=== PATIENT | female | born 1965 | race Caucasian/White ===

== ENCOUNTER 2020-11-02 09:04 | Outpatient (REF) | payer OTHER, SELFPAY ==
[2020-11-02 11:34] LABS: Glucose Urine UA NEG (NEG); Leukocyte Esterase Urine NEG (NEG); Nitrite Urine NEG (NEG); Urine Blood TRACE (NEG); Urine Ketones NEG (NEG); Urine Protein NEG (NEG-TRACE)
[2020-11-02 11:36] LABS: Appearance Urine CLEAR; Color Urine YELLOW
[2020-11-02 11:51] LABS: Hematocrit 36.8 % (37-47); Hemoglobin 12.3 g/dl (12.0-16.0); Mean Corpuscular HGB Conc 33.4 g/dl (31.0-35.0); Mean Corpuscular Hemoglobin 30.8 pg (27.0-33.0); Mean Corpuscular Volume 92.2 fL (80-98); Platelet Count 323 X10*3/uL (160-400); Red Blood Count 3.99 X10*6/uL (4.20-5.50); Red Cell Distribution Width 13.6 % (11.0-16.0); White Blood Count 3.8 X10*3/uL (4.8-10.8)
[2020-11-02 11:52] LABS: Mucus Urine TRACE /LPF; Squamous Epithelial Cell Urine 1+ /LPF; WBC Urine 0 /HPF (0-4)
[2020-11-02 12:05] LABS: Alanine Aminotransferase 26 U/L (0-31); Albumin Level 4.4 g/dL (3.5-5.0); Alkaline Phosphatase 71 U/L (39-117); Anion Gap 13 (12-20); Aspartate Amino Transferase 22 U/L (5-31); Bilirubin Total 0.7 mg/dL (0.0-1.0); Blood Urea Nitrogen 12 mg/dL (9-16); Calcium 9.7 mg/dL (8.4-10.2); Carbon Dioxide 24 mmol/L (22-29); Chloride 108 mmol/L (96-108); Cholesterol 251 mg/dL; Estimated Glomerular Filt Rate > 60; Glucose Fasting 96 mg/dL (60-99); HDL Cholesterol 50 mg/dL; LDL Cholesterol Calculated 164 mg/dl; Potassium 4.3 mmol/L (3.3-5.1); Sodium 141 mmol/L (135-145); Total Protein 7.2 g/dL (6.5-8.0); Triglycerides 187 mg/dL
[2020-11-02 12:27] LABS: TSH reflex Free T4 1.64 uIU/mL (0.32-4.0)
[2020-11-03 17:51] LABS: Thyroid Peroxidase Antibodies 2 IU/mL (<9)
== END 2020-11-02 09:05 | disposition home or self-care (01) ==
LOC: HO.HMGCLDS 09:04
PROVIDERS: PCP Internal Medicine; Visit Provider Internal Medicine
DX: Z00.00 Encounter for general adult medical examination without abnormal findings (principal); N30.10 Interstitial cystitis (chronic) without hematuria; E06.3 Autoimmune thyroiditis
CPT/HCPCS: 36415; 80053; 80061; 81001; 84443; 85027; 86376

== ENCOUNTER 2020-12-22 06:25 | Outpatient (REF) | payer OTHER, SELFPAY ==
[2020-12-22 10:07] LABS: Influenza A PCR NEGATIVE (Negative); Influenza B PCR NEGATIVE (Negative); Resp Syncy Virus RNA Qual PCR NEGATIVE (Negative); SARS COV2 PCR INHOUSE NEGATIVE (Negative)
== END 2020-12-22 06:26 | disposition home or self-care (01) ==
LOC: HO.LAB 06:25
PROVIDERS: PCP Internal Medicine; Visit Provider Internal Medicine
DX: Z20.822 Contact with and (suspected) exposure to COVID-19 (principal)
CPT/HCPCS: 0241U; 36415; C9803

== ENCOUNTER → 2021-01-09 08:32 | Outpatient (BNVA) | payer OTHER, SELFPAY | PROVIDERS: PCP Internal Medicine; Visit Provider Internal Medicine ==

== ENCOUNTER 2021-01-12 16:02 | Outpatient (REF) | payer OTHER, SELFPAY ==
--- NOTE | ~2021-01-12 | MR_ITS ---
EXAMINATION: MR CERVICAL SPINE WITHOUT CONTRAST CLINICAL INFORMATION: Neck pain. Bilateral upper and lower extremity pain and weakness. Upper extremity numbness. COMPARISON: No relevant prior imaging. TECHNIQUE: MRI of the cervical spine was obtained using routine sequences without contrast. FINDINGS: Alignment is normal. Vertebral body heights are preserved. No acute bone marrow signal changes. There is loss of intervertebral disc height and T2 signal intensity at C4-C5, C5-C6, and C6-C7 related to disc degeneration. Disc desiccation is demonstrated at multiple additional levels. There is no cord compression or abnormal intramedullary signal changes. The cervicomedullary junction is normal. Limited visualization of the posterior fossa reveals no abnormal finding. The occipital condyles and lateral C1 masses are intact. The atlantodental joint is normal. C1-C2 articular facets are unremarkable. At C2-C3 the annular contour is normal. No canal or neuroforaminal compromise. At C3-C4 the annular contour is normal. Asymmetric uncovertebral joint spurring and facet degenerative change causes mild left neuroforaminal encroachment. At C4-C5 there is a slightly bulging disc. Mild canal stenosis. Uncovertebral joint spurring and facet degenerative change causes mild bilateral neuroforaminal encroachment, slightly greater on the left. At C5-C6 there is a slightly bulging disc. Mild canal stenosis. Uncovertebral joint spurring and facet degenerative change causes mild bilateral neuroforaminal encroachment. At C6-C7 there is a slightly bulging disc. Mild canal stenosis. Asymmetric uncovertebral joint spurring and facet degenerative change causes mild left neuroforaminal encroachment. At C7-T1 annular contour is normal. No canal or neuroforaminal compromise. Visualized soft tissues of the neck are normal. MR/MR cervical spine wo con IMPRESSION: There is multilevel degenerative spondylosis of the cervical spine with mild canal stenosis at levels of C4-C5, C5-C6, and C6-C7. No overt cord compression and no abnormal intramedullary signal changes. There is mild neuroforaminal encroachment at multiple levels related to uncovertebral joint spurring and facet degenerative change as described above.
--- NOTE | ~2021-01-12 | MR_ITS ---
EXAMINATION: MR LUMBAR SPINE WITHOUT CONTRAST CLINICAL INFORMATION: Low back pain. Bilateral lower extremity pain and weakness. COMPARISON: No relevant prior imaging. TECHNIQUE: MRI of the lumbar spine was obtained using routine sequences without contrast. FINDINGS: Alignment is normal. Vertebral body heights are preserved. There is slight loss of intervertebral disc height and T2 signal intensity at L3-L4. Disc desiccation is demonstrated at multiple additional levels. The tip of the conus medullaris is located at L1. No mass effect on the conus. Visualized distal cord signal intensity is normal. At L1-L2 the annular contour is normal. No canal or neuroforaminal compromise. At L2-L3 the annular contour is normal. No canal or neuroforaminal compromise. At L3-L4 there is a slightly bulging disc. Bilateral facet degenerative change. Mild canal stenosis and no mass effect on the traversing or foraminal nerve roots. At L4-L5 there is a slightly bulging disc. Bilateral facet degenerative change. No canal stenosis. No mass effect on the traversing or foraminal nerve roots. At L5-S1 there is a central annular fissure associated with a bulging disc. No canal stenosis. No mass effect on the traversing or foraminal nerve roots. Limited visualization of the retroperitoneal anatomy reveals no abnormal finding. Psoas and paraspinal muscle groups are symmetric. MR/MR lumbar spine wo con IMPRESSION: There is disc degeneration at multiple levels within the lumbar spine. Mild canal stenosis at L3-L4. Otherwise no canal compromise. No mass effect on the traversing or foraminal nerve roots.
== END 2021-01-12 16:03 | disposition home or self-care (01) ==
LOC: HO.MRI 16:02
PROVIDERS: PCP Internal Medicine; Visit Provider Internal Medicine
DX: M54.5 Low back pain (principal); M54.2 Cervicalgia
CPT/HCPCS: 72141; 72148

== ENCOUNTER 2021-01-18 07:03 | Outpatient (REF) | payer OTHER, SELFPAY | END 2021-01-18 07:04 | disposition home or self-care (01) | LOC: HO.LAB 07:03 | PROVIDERS: Visit Provider Internal Medicine | DX: Z20.822 Contact with and (suspected) exposure to COVID-19 (principal) | CPT/HCPCS: C9803; U0003; U0005 ==

== ENCOUNTER → 2021-02-10 10:47 | Outpatient (BNVA) | payer OTHER, SELFPAY | PROVIDERS: PCP Internal Medicine; Visit Provider Internal Medicine ==

== ENCOUNTER → 2021-03-17 09:57 | Outpatient (BNVA) | payer OTHER, SELFPAY | PROVIDERS: PCP Internal Medicine; Visit Provider Internal Medicine ==

== ENCOUNTER 2021-10-24 13:28 | Outpatient (REF) | payer OTHER, SELFPAY ==
[2021-10-24 13:43] LABS: MANUAL DIFF FLAG NO
[2021-10-24 14:23] LABS: Basophils Percent Auto 0.3 % (0-2); Eosinophils Percent Auto 0.2 % (0-4); Hematocrit 36.5 % (37.0-47.0); Hemoglobin 12.1 g/dl (12.0-16.0); Imm Gran Abs Auto 0.08 X10*3/uL (0.00-0.03); Imm Gran Pct Auto 0.9 % (0.0-0.4); Lymphocytes Absolute Auto 1.7 X10*3/uL (1.2-4.9); Lymphocytes Percent Auto 18.7 % (20-40); Mean Corpuscular HGB Conc 33.2 g/dl (31.0-35.0); Mean Corpuscular Hemoglobin 29.6 pg (27.0-33.0); Mean Corpuscular Volume 89.2 fL (80.0-98.0); Mean Platelet Volume 9.9 fL (9.4-12.3); Monocytes Absolute Auto 0.4 X10*3/uL (0.1-1.2); Monocytes Percent Auto 4.4 % (2-11); Neutrophils Absolute Auto 6.8 x10*3/uL (2.0-8.3); Neutrophils Percent Auto 75.5 % (45-73); Platelet Count 346 X10*3/uL (160-400); Red Blood Count 4.09 X10*6/uL (4.20-5.50); Red Cell Distribution Width 13.9 % (11.0-16.0); White Blood Count 9.1 X10*3/uL (4.8-10.8)
== END 2021-10-24 13:29 | disposition home or self-care (01) ==
LOC: HO.LAB 13:28
PROVIDERS: PCP Internal Medicine; Visit Provider Internal Medicine Pulmonary Disease
DX: Z91.09 Other allergy status, other than to drugs and biological substances (principal); J45.909 Unspecified asthma, uncomplicated
CPT/HCPCS: 36415; 82785; 85025; 86003; 94010

== ENCOUNTER 2021-11-10 10:00 | Outpatient (REF) | payer OTHER, SELFPAY | END 2021-11-10 10:01 | disposition home or self-care (01) | LOC: HO.MDS 10:00 | PROVIDERS: PCP Internal Medicine; Visit Provider Internal Medicine Pulmonary Disease | DX: J45.40 Moderate persistent asthma, uncomplicated (principal) | CPT/HCPCS: 96372; J2357 ==

== ENCOUNTER 2021-11-17 14:57 | Outpatient (REF) | payer OTHER, SELFPAY ==
--- NOTE | 2021-11-17 17:32 | PFT_ITS ---
INDICATION: Dyspnea. SPIROMETRY: FEV1 to FVC of 90% with an FEV1 of 2.45, which is 101% predicted and an FVC of 2.71 L, which is 89% predicted. No significant response to bronchodilators noted. Maximum voluntary ventilation 111% predicted. LUNG VOLUMES: Total lung capacity 90% predicted with an expiratory reserve volume of 53% predicted. DIFFUSION CAPACITY: DLCO 77% predicted. COMPARISONS: None. INTERPRETATION: No obstructive nor restrictive ventilatory defects identified. No significant response to bronchodilators noted. Normal maximum voluntary ventilation. Lung volumes are normal except for decrease in the expiratory reserve volume. In addition to that, there is mild diffusion impairment. If asthma is in the differential, methacholine challenge may be helpful for assessing for hyper-reactive. Airways also correction for hemoglobin may be helpful. Clinical correlation warranted. MD QUOC Maravilla/MODL / [id number]
== END 2021-11-17 14:58 | disposition home or self-care (01) ==
LOC: HO.RESP 14:57
PROVIDERS: PCP Internal Medicine; Visit Provider Internal Medicine Pulmonary Disease
DX: J45.909 Unspecified asthma, uncomplicated (principal)
CPT/HCPCS: 94060; 94727; 94729

== ENCOUNTER 2021-11-23 07:38 | Outpatient (REF) | payer OTHER, SELFPAY ==
[2021-11-23 10:22] LABS: IDNOW Serial# 08D9AD1C
[2021-11-23 10:23] LABS: COVID-19 Test Negative (Negative)
== END 2021-11-23 07:39 | disposition home or self-care (01) ==
LOC: HO.LAB 07:38
PROVIDERS: Visit Provider Internal Medicine
DX: Z20.822 Contact with and (suspected) exposure to COVID-19 (principal)
CPT/HCPCS: 87635; C9803

== ENCOUNTER 2021-12-12 10:20 | Outpatient (REF) | payer OTHER, SELFPAY | END 2021-12-12 10:21 | disposition home or self-care (01) | LOC: HO.MDS 10:20 | PROVIDERS: PCP Internal Medicine; Visit Provider Internal Medicine Pulmonary Disease | DX: J45.50 Severe persistent asthma, uncomplicated (principal) | CPT/HCPCS: 96372; J2357 ==

== ENCOUNTER 2021-12-14 08:51 | Outpatient (REF) | payer OTHER, SELFPAY ==
--- NOTE | ~2021-12-14 | XR_ITS ---
EXAMINATION: XR PELVIS CLINICAL INFORMATION: Pain and DIP COMPARISON: None TECHNIQUE: AP view of the pelvis. FINDINGS: There is a moderate loss of right hip joint space with periarticular spurring. The left hip and SI joints are symmetrical and normal. No visible acute fracture or dislocation seen. The soft tissues are normal. There is small to moderate-sized enthesophyte along the right greater trochanter. XR/XR pelvis 1-2V IMPRESSION: Moderate degenerative arthritic changes right hip joint. No subchondral cystic changes appreciated on this exam. Unremarkable left hip, SI joints and pelvis.
== END 2021-12-14 08:52 | disposition home or self-care (01) ==
LOC: HO.HOSX 08:51
PROVIDERS: Visit Provider Orthopaedic Surgery
DX: M25.559 Pain in unspecified hip (principal)
CPT/HCPCS: 72170

== ENCOUNTER 2022-01-09 10:36 | Outpatient (REF) | payer OTHER, SELFPAY | END 2022-01-09 10:37 | disposition home or self-care (01) | LOC: HO.MDS 10:36 | PROVIDERS: PCP Internal Medicine; Visit Provider Internal Medicine Pulmonary Disease | DX: J45.40 Moderate persistent asthma, uncomplicated (principal) | CPT/HCPCS: 96372; J2357 ==

== ENCOUNTER 2022-01-11 10:25 | Outpatient (REF) | payer OTHER, SELFPAY ==
[2022-01-11 14:03] LABS: Alanine Aminotransferase 27 U/L (0-31); Albumin Level 4.6 g/dL (3.5-5.0); Alkaline Phosphatase 86 U/L (39-117); Anion Gap 18 (12-20); Aspartate Amino Transferase 25 U/L (5-31); Bilirubin Total 0.6 mg/dL (0.0-1.0); Blood Urea Nitrogen 14 mg/dL (9-16); C Reactive Protein 0.11 mg/dL (< or = 0.50); Calcium 9.9 mg/dL (8.4-10.2); Carbon Dioxide 25 mmol/L (22-29); Chloride 103 mmol/L (96-108); Estimated Glomerular Filt Rate > 60; Glucose Random 103 mg/dL (60-115); Potassium 4.7 mmol/L (3.3-5.1); Sodium 141 mmol/L (135-145); Total Protein 7.8 g/dL (6.5-8.0)
[2022-01-11 14:35] LABS: Erythrocyte Sedimentation Rate 9 MM/HR (0-20)
== END 2022-01-11 10:26 | disposition home or self-care (01) ==
LOC: HO.10HDL 10:25
PROVIDERS: Visit Provider Internal Medicine Rheumatology
DX: M79.7 Fibromyalgia (principal); R52 Pain, unspecified; M16.11 Unilateral primary osteoarthritis, right hip
CPT/HCPCS: 36415; 80053; 85652; 86140

== ENCOUNTER 2022-01-31 10:41 | Outpatient (REF) | payer OTHER, SELFPAY ==
[2022-01-31 14:00] LABS: MANUAL DIFF FLAG NO
[2022-01-31 14:07] LABS: Basophils Percent Auto 0.9 % (0-2); Eosinophils Absolute Auto 0.1 X10*3/uL (0.0-0.4); Eosinophils Percent Auto 2.5 % (0-4); Hemoglobin 12.2 g/dl (12.0-16.0); Imm Gran Abs Auto 0.01 X10*3/uL (0.00-0.03); Imm Gran Pct Auto 0.2 % (0.0-0.4); Lymphocytes Absolute Auto 1.9 X10*3/uL (1.2-4.9); Lymphocytes Percent Auto 43.9 % (20-40); Mean Corpuscular Hemoglobin 29.8 pg (27.0-33.0); Mean Corpuscular Volume 90.5 fL (80.0-98.0); Monocytes Absolute Auto 0.3 X10*3/uL (0.1-1.2); Monocytes Percent Auto 6.7 % (2-11); Neutrophils Percent Auto 45.8 % (45-73); Platelet Count 362 X10*3/uL (160-400); Red Blood Count 4.09 X10*6/uL (4.20-5.50); Red Cell Distribution Width 13.8 % (11.0-16.0); White Blood Count 4.4 X10*3/uL (4.8-10.8)
[2022-01-31 14:19] LABS: Anion Gap 13 (12-20); Blood Urea Nitrogen 11 mg/dL (9-16); Calcium 9.7 mg/dL (8.4-10.2); Carbon Dioxide 26 mmol/L (22-29); Chloride 105 mmol/L (96-108); Cholesterol 303 mg/dL; Estimated Glomerular Filt Rate > 60; Glucose Random 103 mg/dL (60-115); HDL Cholesterol 66 mg/dL; LDL Cholesterol Calculated 196 mg/dl; Potassium 4.2 mmol/L (3.3-5.1); Sodium 140 mmol/L (135-145); Triglycerides 206 mg/dL
== END 2022-01-31 10:42 | disposition home or self-care (01) ==
LOC: HO.HMGCLDS 10:41
PROVIDERS: Absent Provider Internal Medicine; PCP Internal Medicine; Visit Provider Orthopaedic Surgery
DX: Z01.812 Encounter for preprocedural laboratory examination (principal); E78.5 Hyperlipidemia, unspecified
CPT/HCPCS: 36415; 80048; 80061; 85025

== ENCOUNTER 2022-02-08 12:00 | Outpatient (REF) | payer OTHER, SELFPAY | END 2022-02-08 12:01 | disposition home or self-care (01) | LOC: HO.MDS 12:00 | PROVIDERS: PCP Internal Medicine; Visit Provider Internal Medicine Pulmonary Disease | DX: J45.40 Moderate persistent asthma, uncomplicated (principal) | CPT/HCPCS: 96372; 96374; 96375; J1200; J2357 ==

== ENCOUNTER 2022-02-15 11:14 | Outpatient (REF) | payer OTHER, SELFPAY ==
--- NOTE | ~2022-02-15 | MM_ITS ---
EXAMINATION: MM SCREENING DIGITAL BREAST TOMOSYNTHESIS, BILATERAL CLINICAL INFORMATION: Screening. Asymptomatic. The lifetime risk of breast cancer based on the Tyrer-Cuzick Model is 11%. COMPARISON: Mammography: 07/08/2020 ([facility]). TECHNIQUE: Digital mammography is performed in craniocaudal and mediolateral oblique views along with computer-aided detection (CAD). Digital breast tomosynthesis is performed in implant-displaced craniocaudal and implant-displaced mediolateral oblique views along with computer-aided detection (CAD). Synthesized 2D images are generated from the tomosynthesis. FINDINGS: There are scattered areas of fibroglandular density (ACR BI-RADS breast composition Category b). There are no significant masses, abnormal calcifications, or other abnormalities. Breast tissue composition borders on heterogeneously dense. There is no developing density or architectural abnormality. The axilla and skin contours are unremarkable. There are bilateral retropectoral implants with smooth contours. Implant contours are similar to prior exam. MM/MM tomosynthesis screen imp BI IMPRESSION: No mammographic evidence of malignancy. ASSESSMENT: BI-RADS 1: Negative RECOMMENDATION: Routine annual mammography screening. This patient's information was entered into a reminder system with a target due date for their next mammogram.
== END 2022-02-15 11:15 | disposition home or self-care (01) ==
LOC: HO.MAMMO 11:14
PROVIDERS: Absent Provider Obstetrics & Gynecology; PCP Internal Medicine; Visit Provider Internal Medicine
DX: Z12.31 Encounter for screening mammogram for malignant neoplasm of breast (principal)
CPT/HCPCS: 77063; 77067

== ENCOUNTER 2022-02-22 21:15 | Outpatient (REF) | payer OTHER, SELFPAY ==
--- NOTE | ~2022-02-22 | XR_ITS ---
EXAMINATION: XR ANKLE, RIGHT CLINICAL INFORMATION: Right ankle pain COMPARISON: None TECHNIQUE: AP, lateral, and mortise views of the right ankle. FINDINGS: The bones and soft tissues are normal. No fracture. Alignment is anatomic. Joint spaces are maintained. No joint effusion. XR/XR ankle RT min 3V IMPRESSION: Normal right ankle.
== END 2022-02-22 21:16 | disposition home or self-care (01) ==
LOC: HO.HOSX 21:15
PROVIDERS: Visit Provider Physician Assistant
DX: M25.571 Pain in right ankle and joints of right foot (principal)
CPT/HCPCS: 73610

== ENCOUNTER 2022-02-27 07:24 | Inpatient (IN) | payer OTHER, SELFPAY ==
[2022-02-19 15:03] VITALS: BMI 28.1
[2022-02-22 12:16] LABS: Cholesterol 297 mg/dL; HDL Cholesterol 56 mg/dL; LDL Cholesterol Calculated 204 mg/dl; Triglycerides 186 mg/dL
[2022-02-22 12:39] LABS: TSH reflex Free T4 1.27 uIU/mL (0.32-4.0)
[2022-02-22 13:08] LABS: MRSA Nasal PCR NEGATIVE (Negative); SA Nasal PCR NEGATIVE (Negative)
--- NOTE | 2022-02-26 09:04 | P.CONAN_ITS ---
Documented by User: Faina Murillo NP 02/26/22 09:08 HPI - Anesthesia Eval Consult details Narrative: 56yo F for Right Hip Total Replacement PCP cleared [facility] Active Problems Active Problems: All Active Problems (Updated 02/19/22 @ 15:14 by Geovanna Gresham RN) Neck pain (Acute) Environmental allergies (Acute) Asthma (Acute) Osteoarthritis of right hip (Acute) Pain of multiple sites (Acute) Annual physical exam (Acute) Chronic pain (Acute) Hyperlipidemia (Acute) Colorectal polyp detected on colonoscopy (Acute) Fibromyalgia (Acute) Alix's disease (Acute) Interstitial cystitis (Acute) Past Medical History Medical History Annual physical exam Asthma Chronic pain Colorectal polyp detected on colonoscopy Fibromyalgia Alix's disease Hyperlipidemia Interstitial cystitis Normal Pap smear Family History Family History Father No problems noted. 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 If so, by whom?: No Are you DNR?: No Advance Directives: No Advance Directives Information Provided: Yes (brochure mailed) Advance Directives on File: No Recently lost weight without trying: No Eating poorly because of decreased appetite: No Nutrition Risks: No Nutritional Risk Patient : No FDLMP: post menopausal : No Poor oral hygiene: No service: No Current occupation: at home Cognitive needs: No Hearing needs: No Vision needs: Yes Meds Allergies Allergy/AdvReac Type Severity Reaction Status Date / Time No Known Allergies Allergy Verified 02/22/22 09:50 Home Medications Medication Instructions Recorded Confirmed Last Taken Type acetaminophen 500 mg tablet 1,000 mg PO Q6H PRN Pain 01/09/21 02/19/22 02/26/22 History (Tylenol Extra Strength) meloxicam 15 mg tablet 15 mg PO DAILY 11/08/21 02/19/22 02/20/22 History Exam Exam Date and Time: February 26, 2022 0904 Height,Weight and Vital Signs: Height 5 ft 1 in Weight 67.585 kg Pertinent Lab Results Pertinent Lab Results: Laboratory Tests 02/22/22 02/22/22 02/22/22 10:50 11:15 11:20 Triglycerides 186 Cholesterol 297 LDL Cholesterol, Calc 204 HDL Cholesterol 56 TSH 1.27 Nasal Screen MRSA (PCR) NEGATIVE Nasal S. aureus Screen NEGATIVE Nasal MRSA/S.aureus Interp SEE NOTE Blood Type O Positive Antibody Screen NEGATIVE Laboratory Tests 01/31/22 01/31/22 10:50 10:50 WBC 4.4 L Hgb 12.2 Hct 37.0 Plt Count 362 Sodium 140 Potassium 4.2 Chloride 105 Carbon Dioxide 26 BUN 11 Creatinine 0.79 Narrative Narrative: EKG 01/2022 NSR @ 79 PFT 11/2021 INTERPRETATION:? No obstructive nor restrictive ventilatory defects identified.? No significant response to bronchodilators noted.? Normal maximum voluntary ventilation.? Lung volumes are normal except for decrease in the expiratory reserve volume.? In addition to that, there is mild diffusion impairment.? If asthma is in the differential, methacholine challenge may be helpful for assessing for hyper-reactive.? Airways also correction for hemoglobin may be helpful. Clinical correlation warranted. Assessment and Plan Assessment Anesthesia Assessment: Chart Reviewed Documented by User: Devante Ibarra MD 02/27/22 16:56 PMF Past Medical History Medical History Annual physical exam Asthma Chronic pain Colorectal polyp detected on colonoscopy Fibromyalgia Alix's disease Hyperlipidemia Interstitial cystitis Normal Pap smear Family History Family History Father No problems noted. 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 If so, by whom?: No Are you DNR?: No Advance Directives: No Advance Directives Information Provided: Yes (brochure mailed) Advance Directives on File: No Recently lost weight without trying: No Eating poorly because of decreased appetite: No Nutrition Risks: No Nutritional Risk Patient : No FDLMP: post menopausal : No Poor oral hygiene: No service: No Current occupation: at home Cognitive needs: No Hearing needs: No Vision needs: Yes Meds Allergies Allergy/AdvReac Type Severity Reaction Status Date / Time No Known Allergies Allergy Verified 02/22/22 09:50 Home Medications Medication Instructions Recorded Confirmed Last Taken Type acetaminophen 500 mg tablet 1,000 mg PO Q6H PRN Pain 01/09/21 02/19/22 02/26/22 History (Tylenol Extra Strength) meloxicam 15 mg tablet 15 mg PO DAILY 06/01/2202/19/22 02/20/22 History Exam Airway Mallampati Class: III Neck ROM: Limited Loose/Missing/Broken Teeth: Yes (Caps , fillings ) Heart: S1,S2 Lungs: b/l breath sounds Assessment and Plan Assessment Anesthesia Assessment: Anesthesia Plan Discussed Final Anesthetic Review Family History of Problems with Anesthesia: No History of Problems with Anesthesia: No NPO: Yes ASA Class: II Final Preanesthetic Review: Meds/Allgs Chart Reviewed, Consent Obtained/Reviewed and Anes Risks/Benef Reviewed Patient Risk: Intermediate Procedure Risk: Intermediate Anesthetic Plan Anesthetic Plan: GA Disposition: Standard PACU
[2022-02-27] VITALS (26 sets, daily range): BP systolic 96–127; BP diastolic 49–73; PULSE 66–106; RESP 12–20; TEMP 36.6–36.8; O2SAT 92–99
--- NOTE | ~2022-02-27 | XR_ITS ---
EXAMINATION: XR PELVIS CLINICAL INFORMATION: Post hip replacement COMPARISON: Previous x-ray December 2021 TECHNIQUE: AP view of the pelvis. FINDINGS: There is a new right hip replacement in satisfactory position. No fracture or dislocation. Bones of the pelvis are unremarkable. There are postoperative changes to the soft tissues. XR/XR pelvis 1-2V IMPRESSION: Satisfactory appearance of right hip replacement.
[2022-02-27] MEDS: oxyCODONE HCl ER 10 MG TAB.ER.12H PO ×2 (07:55→19:25)
[2022-02-27 08:08] LABS: COVID-19 Test Negative (Negative); IDNOW Serial# 55D5AD1C
[2022-02-27] MEDS: Lactated Ringers 1,000 ML 100 ML IVCONT ×4 (08:11→23:35)
--- NOTE | 2022-02-27 09:34 | MHC.SHP ---
Pre-Procedural Eval Section A Date of Service: 02/27/22 The patient is an INPATIENT: No Changes since office visit: Yes Patient answered all questions; No Cold of Flu in the past 2 weeks, No New Medical Problems and No Changes in Medication The History & Physical has been completed within 30 days and I have reviewed it.: Yes Section B Chief Complaint: RT WESLY Allergies: Allergies Allergy/AdvReac Type Severity Reaction Status Date / Time No Known Allergies Allergy Verified 02/22/22 09:50 Plan I have reviewed the history and physical and performed a pertinent physical examination on my patient. No changes have occurred unless specified.
--- NOTE | 2022-02-27 11:13 | PHA.MEDREC ---
Pharmacy Consult ? Medication Reconciliation Pharmacy has reviewed the medication reconciliation completed by nursing. Patient just filled atorvastatin for the first time yesterday, since patient has not started yet left medication unconfirmed. Laura Ruiz, PharmD
--- NOTE | 2022-02-27 12:38 | P.OP_ITS ---
Operative Note Operative Note Date of Service: 02/27/22 Narrative: Date of Service: 02/27/22 Pre-op diagnosis: right hip OA Post-op diagnosis: same Procedure: Right WESLY Implants: [place] Trident2 46/ MDM Farhad Accolade2 #4 127 deg +0 MDM Surgeon: Franklyn Conner MD Anesthesia: GETA and local Was an Land Conservation Specialist used for this Procedure?: Yes Land Conservation Specialist: Jono Bill Estimated blood loss (mL): 200 Tourniquet time (min): 0 IV fluids (mL): 1,000 Pathology: other Condition: stable Disposition: PACU Procedure in detail: Patient was brought into the operating room and placed in the Left lateral decubitus position. All bony prominences were well padded and the limb was prepped and draped in standard sterile fashion. Time-out was called to identify proper site procedure proper surgeon IV antibiotics and 1 g of transaxemic acid were administered. I began by making a curvilinear incision over the posterolateral aspect of the greater trochanter. Dissection was taken down to the tensor fascia which was incised in line with the incision and a Charnley retractor was placed. Cautery was used to maintain hemostasis. A werewolf device was also used. The hip was internally rotated and the external rotators were identified. The vessels were cauterized and a full-thickness capsular/external rotator layer was developed starting just proximal to the piriformis. This layer was tagged and a dull Hohmann retractor was placed underneath the neck in the hip was dislocated. A neck cut was made 1 cm proximal to the lesser trochanter and the head and neck were removed and measured at 41mm on the back table. I started with a 40 reamer doen to the inner table. She had diminutive posterior wall and so, while down to within 1-2 mm of medial wall I was hesitant to ream more. I sequentially reamed up to a size 46 and impacted a 46 at 45 degrees of inclination and 25 degrees of version. There was deficient posterosuperior bone and so one 30 mm 6.5 mm acetabular screw was placed. Standard AO technique was used to insure the screw was intraosseous. A second acetabular screw was not po ssible given the diminutive nature of her acetabulum coupled with the deficient posterior bone. I then placed a trial liner and turned my attention to the femur. I identified the piriformis insertion and used this as a starting point for my aldo cutter. The medius tendon was protected with a Hibs retractor. I then used a Charnley awl to identify the canal and a curved curette to remove the la teral bone. I irrigated copiously. I then sequentially broached in the patient's natural version to a size 4 and placed my trial implants ( 127deg). The #3 implant subsided to the level of the lesser and therefore a 4 was used which required a jump in neck length. Using a trail head I took the hip through range of motion. I was not satisfied with the stability with a 32 head without increasing length which was not possible. I felt an MDM was more stable. Therefore I placed my final MDM liner and again took the hip through a ROM with a standard head. I was satisfied with the ROM and stability. I removed all instrumentation and copiously irrigated. I placed my final femoral implant and again took the hip through range of motion and was satisfied with the stability and length. My final head was impacted in place and the hip was reduced. I then irrigated for 3 minutes with iodine and placed 1 g of local transaxemic acid. I then performed a capsular closure with 2.0 fiberwire, Senthil's fascia with 0 Vicryl, subcuticular with 2-0 Vicryl and the skin with wilmar. Patient was placed into a sterile dressing. Radiographs were obtained at the completion of the case and I was satisfied with the component position. The operative limb measured 3 mm long but there was no more medialization of the cup possible and a +0 32 was unstable. I therefore sacrificed length for stability. Patient was then extubated brought to the recovery room in stable condition.
[2022-02-27] MEDS: fentaNYL citrate/PF 100 MCG/2 ML VIAL 25 MCG IVPUSH (12:55)
[2022-02-27] MEDS: HYDROmorphone HCl 0.5 MG/0.5 ML SYRINGE 0.25 MG IVPUSH ×4 (13:03→15:03)
[2022-02-27] MEDS: HYDROmorphone HCl 0.5 MG/0.5 ML SYRINGE IVPUSH ×2 (15:26→18:21)
[2022-02-27] MEDS: ceFAZolin Sodium/Dextrose,Iso 2 GM/50 ML PIGGYBACK IV (15:59)
[2022-02-27] MEDS: Celecoxib 200 MG CAPSULE PO (19:24)
[2022-02-27] MEDS: Docusate Sodium 100 MG CAPSULE PO (19:24)
[2022-02-27] MEDS: Ketorolac Tromethamine 15 MG/ML VIAL IVPUSH ×2 (19:29→23:31)
[2022-02-27] MEDS: 0.9 % Sodium Chloride Flush 3 ML SYRINGE IVFLUSH ×2 (19:32→23:40)
[2022-02-28] VITALS (9 sets, daily range): BP systolic 103–133; BP diastolic 52–66; PULSE 75–100; RESP 18; TEMP 36.4–37.1; O2SAT 95–97
[2022-02-28] MEDS: Ketorolac Tromethamine 15 MG/ML VIAL IVPUSH ×3 (05:31→18:30)
[2022-02-28] MEDS: Omeprazole 40 MG CAPSULE.DR PO ×2 (05:37→15:44)
[2022-02-28 05:56] LABS: MANUAL DIFF FLAG NO
[2022-02-28 05:58] LABS: Basophils Percent Auto 0.1 % (0-2); Eosinophils Percent Auto 0.3 % (0-4); Hematocrit 27.6 % (37.0-47.0); Hemoglobin 9.1 g/dl (12.0-16.0); Imm Gran Abs Auto 0.04 X10*3/uL (0.00-0.03); Imm Gran Pct Auto 0.5 % (0.0-0.4); Lymphocytes Absolute Auto 1.8 X10*3/uL (1.2-4.9); Lymphocytes Percent Auto 22.8 % (20-40); Mean Corpuscular Hemoglobin 29.6 pg (27.0-33.0); Mean Corpuscular Volume 89.9 fL (80.0-98.0); Mean Platelet Volume 9.6 fL (9.4-12.3); Monocytes Absolute Auto 0.8 X10*3/uL (0.1-1.2); Monocytes Percent Auto 10.5 % (2-11); Neutrophils Absolute Auto 5.2 x10*3/uL (2.0-8.3); Neutrophils Percent Auto 65.8 % (45-73); Platelet Count 248 X10*3/uL (160-400); Red Blood Count 3.07 X10*6/uL (4.20-5.50); Red Cell Distribution Width 13.9 % (11.0-16.0); White Blood Count 7.8 X10*3/uL (4.8-10.8)
[2022-02-28 06:15] LABS: Anion Gap 11 (12-20); Blood Urea Nitrogen 12 mg/dL (9-16); Calcium 8.8 mg/dL (8.4-10.2); Carbon Dioxide 27 mmol/L (22-29); Chloride 107 mmol/L (96-108); Creatinine Clr Calc Pharmacy 75.4; Estimated Glomerular Filt Rate > 60; Glucose Fasting 110 mg/dL (60-99); Potassium 4.3 mmol/L (3.3-5.1); Sodium 141 mmol/L (135-145)
--- NOTE | 2022-02-28 07:55 | P.PNOP_ITS ---
Subjective Subjective Date of Service: 02/28/22 Interval history: POD 1 s/p RT WESLY No overnight events resting in bed, has been out of bed to use bathroom denies sob, cp, palpitations Physical Exam Vital Signs: Vital Signs: Last Vital Signs Temp 97.6 F 02/28/22 04:00 Pulse 88 02/28/22 04:00 Resp 18 02/28/22 04:00 BP 103/56 L 02/28/22 04:00 Pulse Ox 96 02/28/22 04:00 O2 Del Method 02/28/22 04:00 O2 Flow Rate 8 02/27/22 17:47 BMI result Body Mass Index 28.1 Const: General: cooperative, healthy appearing and no acute distress Resp: Effort & Inspection: normal respiratory effort and able to speak in complete sentences Cardio: Rate: regular rate Peripheral pulses: Peripheral pulses 2+ throughout GI: Palpation (GI): Soft to palpation Skin: General skin exam: no rashes or lesions noted Extrem: Other: bandage clean dry and intact. Dm intact. No erythema or effusion. Calf supple nontender. Neurovascularly intact. Procedures Date of Service Date of Service: 02/28/22 Progress Note: A&P Assessment and plan (1) History of total right hip replacement: Status: Acute Assessment and Plan: * Continue pain mgmnt * Begin Aspirin for dvt ppx * begin PT /OT for LT WESLY * Dispo planning-Pending PT eval, pain mgmnt Time Spent With Patient Time: Total time spent is greater than 50% in coordination of care (as documented) at patient's floor/unit and/or counseling patient: Quality Stroke Does the patient have a stroke diagnosis?: No VTE Prior VTE?: No VTE Risk Level:: Surgical - very high VTE Device Contraindication: N/A - Device Ordered VTE Drug Contraindication: N/A - Med Ordered
[2022-02-28] MEDS: DULoxetine HCl 60 MG CAPSULE.DR PO (08:09)
[2022-02-28] MEDS: Docusate Sodium 100 MG CAPSULE PO ×2 (08:09→20:03)
[2022-02-28] MEDS: Celecoxib 200 MG CAPSULE PO ×2 (08:09→20:02)
[2022-02-28] MEDS: oxyCODONE HCl ER 10 MG TAB.ER.12H PO ×2 (08:09→20:03)
[2022-02-28] MEDS: HYDROmorphone HCl 0.5 MG/0.5 ML SYRINGE 0.25 MG IVPUSH (08:09)
[2022-02-28] MEDS: Lactated Ringers 1,000 ML 100 ML IVCONT ×2 (08:19→18:33)
[2022-02-28] MEDS: Aspirin 325 MG TABLET PO ×2 (11:27→20:04)
--- NOTE | 2022-02-28 12:35 | MHC.CM.PN ---
EMR REVIEWED CM MET WITH PATIENT WHO LIVES IN A SINGLE FAMILY HOME WITH AND CHILDREN. INDEPENDENT AT BASELINE. HAS A CANE. WALKER AND COMMODE AT HOME. NO PRIOR SERVICES. PCP DR. REAGAN NO HCP ON FILE, DECLINED TO FILL ONE OUT AT THIS TIME. COVID VAX X 4 WITH [employer]. WILL TRANSPORT HOME.
--- NOTE | 2022-02-28 14:44 | HO.POSTANES ---
Post Anesthesia Evaluation Post Anesthesia Evaluation Vital Signs: Vital Signs Temp Pulse Resp BP Pulse Ox O2 Del Method 02/28/22 14:19 98 104/62 95 02/28/22 11:18 98.5 F 98 18 104/62 95 Room Air 02/28/22 08:54 75 121/57 L 96 02/28/22 08:00 98.8 F 75 18 121/57 L 96 Room Air 02/28/22 04:00 97.6 F 88 18 103/56 L 96 Room Air Anesthesia: General Mental Status: Awake Pain Control: Satisfactory Nausea/Vomiting: None Hydration: Adequate Anesthesia-Related Issues: No Anes. Related Issues
[2022-02-28] MEDS: oxyCODONE HCl Immed Release 5 MG TABLET PO ×2 (14:53→18:57)
[2022-02-28] MEDS: Simethicone 80 MG TAB.CHEW PO (15:44)
[2022-02-28] MEDS: Acetaminophen 325 MG TABLET 650 MG PO (20:22)
[2022-03-01] MEDS: Ketorolac Tromethamine 15 MG/ML VIAL IVPUSH ×2 (01:01→06:06)
[2022-03-01 03:12] VITALS: BP 93/56; PULSE 78; RESP 17; TEMP 36.8; O2SAT 95
[2022-03-01] MEDS: Lactated Ringers 1,000 ML 100 ML IVCONT (04:46)
[2022-03-01] MEDS: Omeprazole 40 MG CAPSULE.DR PO (06:07)
[2022-03-01 06:13] LABS: MANUAL DIFF FLAG NO
[2022-03-01] MEDS: Simethicone 80 MG TAB.CHEW PO (06:20)
[2022-03-01 06:22] LABS: Basophils Percent Auto 0.6 % (0-2); Eosinophils Absolute Auto 0.1 X10*3/uL (0.0-0.4); Eosinophils Percent Auto 1.7 % (0-4); Imm Gran Abs Auto 0.03 X10*3/uL (0.00-0.03); Imm Gran Pct Auto 0.5 % (0.0-0.4); Lymphocytes Absolute Auto 2.3 X10*3/uL (1.2-4.9); Lymphocytes Percent Auto 35.1 % (20-40); Mean Corpuscular HGB Conc 33.3 g/dl (31.0-35.0); Mean Corpuscular Hemoglobin 29.8 pg (27.0-33.0); Mean Corpuscular Volume 89.4 fL (80.0-98.0); Mean Platelet Volume 9.8 fL (9.4-12.3); Monocytes Absolute Auto 0.4 X10*3/uL (0.1-1.2); Neutrophils Absolute Auto 3.7 x10*3/uL (2.0-8.3); Neutrophils Percent Auto 56.1 % (45-73); Platelet Count 245 X10*3/uL (160-400); Red Blood Count 3.02 X10*6/uL (4.20-5.50); Red Cell Distribution Width 14.1 % (11.0-16.0); White Blood Count 6.7 X10*3/uL (4.8-10.8)
[2022-03-01 06:33] LABS: Anion Gap 12 (12-20); Blood Urea Nitrogen 10 mg/dL (9-16); Calcium 8.8 mg/dL (8.4-10.2); Carbon Dioxide 28 mmol/L (22-29); Chloride 105 mmol/L (96-108); Creatinine Clr Calc Pharmacy 77.4; Estimated Glomerular Filt Rate > 60; Glucose Fasting 98 mg/dL (60-99); Potassium 4.1 mmol/L (3.3-5.1); Sodium 141 mmol/L (135-145)
[2022-03-01 07:44] VITALS: BP 122/62; PULSE 78; RESP 18; TEMP 37.1; O2SAT 97
[2022-03-01 08:00] VITALS: BP 122/62; PULSE 78; O2SAT 97
[2022-03-01] MEDS: oxyCODONE HCl ER 10 MG TAB.ER.12H PO (08:39)
[2022-03-01] MEDS: oxyCODONE HCl Immed Release 5 MG TABLET PO (08:39)
[2022-03-01] MEDS: Aspirin 325 MG TABLET PO (08:40)
[2022-03-01] MEDS: 0.9 % Sodium Chloride Flush 3 ML SYRINGE IVFLUSH (08:40)
[2022-03-01] MEDS: Celecoxib 200 MG CAPSULE PO (08:40)
[2022-03-01] MEDS: Docusate Sodium 100 MG CAPSULE PO (08:40)
[2022-03-01] MEDS: DULoxetine HCl 60 MG CAPSULE.DR PO (08:40)
--- NOTE | 2022-03-01 08:43 | P.DS_ITS ---
DS: Providers Provider Date of Service: 03/01/22 Date of admission: 02/27/22 07:24 Primary care physician: Colette Mazariegos MD DS: Diagnosis Discharge Diagnosis (1) History of total right hip replacement: Status: Acute DS: Summary Hospital Course Hospital Course: The patient underwent a successful right total hip arthroplasty, was transferred to PACU and then to the floor to recover. During their stay, their vitals were stable, afebrile at 98.7. Labs were unremarkable, H/H 9.0/27.0. POD 1 she was started on ASA 325mg tabs po bid for DVT ppx, she also received PT and OT services twice a day. Prior to discharge, their dressing was change, incision clean dry and intact, new Aquacel dressing applied and the plan was to be discharged home with VNA services Time Spent with Patient Time attestation: Total time spent providing and/or coordinating discharge services: Discharge coordination time: Less than 30 minutes Quality: Safe Use of Opioids Does Pt have an Active Cancer Diagnosis on the Problem List?: No Quality: Stroke Does the patient have a stroke diagnosis?: No Physical Exam Vital Signs: Vital Signs: Last Vital Signs Temp 98.7 F 03/01/22 07:44 Pulse 78 03/01/22 08:00 Resp 18 03/01/22 07:44 BP 122/62 03/01/22 08:00 Pulse Ox 97 03/01/22 08:00 O2 Del Method 03/01/22 07:44 O2 Flow Rate 8 02/27/22 17:47 BMI result Body Mass Index 28.1 Const: General: cooperative, healthy appearing and no acute distress Resp: Effort & Inspection: normal respiratory effort and able to speak in complete sentences Cardio: Rate: regular rate Peripheral pulses: Peripheral pulses 2+ throughout GI: Palpation (GI): Soft to palpation Skin: General skin exam: no rashes or lesions noted Extrem: Other: incision clean dry and intact. Alborn intact. No erythema or joint effusion. Calf supple nontender. Neurovascularly intact. DS: Data Data Completed and Pending Pending studies at discharge: Pending at discharge 02/27/22 11:59 Surgical [PTH] Routine Labs on day of discharge: Laboratory Results - last 24 hr 03/01/22 03/01/22 06:11 06:11 WBC 6.7 RBC 3.02 L Hgb 9.0 L Hct 27.0 L MCV 89.4 MCH 29.8 MCHC 33.3 RDW 14.1 Plt Count 245 MPV 9.8 Immature Gran % (Auto) 0.5 H Neut % (Auto) 56.1 Lymph % (Auto) 35.1 [place] % (Auto) 6.0 Eos % (Auto) 1.7 Baso % (Auto) 0.6 Lymph # (Auto) 2.3 [place] # (Auto) 0.4 Eos # (Auto) 0.1 Baso # (Auto) 0.0 Abs Immat Gran (auto) 0.03 Absolute Neuts (auto) 3.7 Absolute Nucleated RBC 0.000 Nucleated RBC % (auto) 0.0 Sodium 141 Potassium 4.1 Chloride 105 Carbon Dioxide 28 Anion Gap 12 BUN 10 Creatinine 0.73 Estim Creat Clear Calc 77.4 Estimated GFR > 60 Fasting Glucose 98 Calcium 8.8 Discharge Plan Discharge Patient Disposition: Home Health Service Discharge Diagnosis: RT WESLY Referrals: Jono Bill PA-C [Physician Beam Sealer] - 2 Weeks (03/15/22 1:30 [facility] Jono Bill PA-C ) Discharge Medications: New celecoxib 200 mg Capsule 200 mg PO BID 30 Days Qty: 60 0RF acetaminophen 325 mg Tablet 650 mg PO Q6H PRN (Reason: Pain, Mild (Pain Scale 1-3)) 30 Days Qty: 240 0RF aspirin 325 mg Tablet 325 mg PO BID 42 Days Qty: 84 0RF docusate sodium 100 mg Capsule 100 mg PO BID 14 Days Qty: 28 0RF oxycodone 5 mg Tablet 5 mg PO Q4H PRN (Reason: Pain, Moderate (Pain Scale 4-6) 7 Days Qty: 42 0RF Rx Instructions: Partial Fill upon patient request. Continued duloxetine 60 mg capsule,delayed release(DR/EC) 60 mg PO DAILY Qty: 30 5RF Xolair 150 mg recon soln 150 mg subcut Q4W 28 Days Qty: 1 12RF omeprazole 40 mg capsule,delayed release(DR/EC) 40 mg PO BID Qty: 180 0RF atorvastatin 20 mg tablet 20 mg PO BEDTIME Qty: 30 3RF Discontinued acetaminophen [Tylenol Extra Strength] 500 mg tablet 1,000 mg PO Q6H PRN (Reason: Pain) meloxicam 15 mg tablet 15 mg PO DAILY Discharge Orders: Discharge Order (Routine); Ordered 03/01/22 Ordered By: Jono Bill Diet: Regular diet Activity on Discharge: Use cane or walker Stand Alone Forms: Patient Portal Discharge page Care Plan Goals: Physical Therapy Pain management DVT prophylaxis Health Concerns: none Plan of Treatment: * Physical Therapy for Total hip arthroplasty: wbat, posterior precautions, gait training, ROM, strength * Limit stair climbing * No showering, no tub bath-keep dressing clean, dry and intact * No driving x6 weeks * Continue Aspirin twice a day x 6 weeks * Follow up with [facility] in 2 weeks: * --you will also have your first out patient PT eval on the day of your post op appt-so please plan on being in the office that day for an extended period of time. Assessment: as above
--- NOTE | 2022-03-01 09:24 | MHC.CM.PN ---
PT MEDICALLY CLEARED FOR DC HOME WITH [facility] FOR HOME PT, WILL TRANSPORT
== END 2022-03-01 11:58 | disposition home health service (06) | DRG 301 ==
LOC: HO.SSSA 07:28 → HO.S3 18:14
PROVIDERS: Nurse Practitioner; Physician Assistant; Admitting Provider Orthopaedic Surgery; PCP Internal Medicine; Visit Provider Orthopaedic Surgery
PROC: 0SR90JA Replacement of Right Hip Joint with Synthetic Substitute, Uncemented, Open Approach (ICD-10-PCS; CPT 27130; principal; 2022-02-27 09:40)
DX: M16.11 Unilateral primary osteoarthritis, right hip (principal); E06.3 Autoimmune thyroiditis; G89.29 Other chronic pain; M79.7 Fibromyalgia; E78.5 Hyperlipidemia, unspecified; Z20.822 Contact with and (suspected) exposure to COVID-19; Z87.891 Personal history of nicotine dependence; Z56.0 Unemployment, unspecified; Z79.82 Long term (current) use of aspirin; Z79.899 Other long term (current) drug therapy
CPT/HCPCS: 36415; 72170; 80048; 80061; 84443; 85025; 86850; 86900; 86901; 87635; 87640; 87641; 88304; 88311; 97110; 97116; 97162; 97166; C1713; C1776; J0131; J0690; J1100; J1170; J1200; J1885; J2250; J2405; J2795; J3010

== ENCOUNTER 2022-03-15 08:36 | Outpatient (REF) | payer OTHER, SELFPAY ==
--- NOTE | ~2022-03-15 | XR_ITS ---
EXAMINATION: XR PELVIS CLINICAL INFORMATION: Hip pain COMPARISON: None TECHNIQUE: AP view of the pelvis. FINDINGS: There is normal symmetry of bilateral SI joints. There is a total right hip prosthesis with immediate postoperative changes. The left joint space is normal. The soft tissues are normal. XR/XR pelvis 1-2V IMPRESSION: 1. Total right hip prosthesis with immediate postoperative changes. 2. The left hip joint is unremarkable..
== END 2022-03-15 08:37 | disposition home or self-care (01) ==
LOC: HO.HOSX 08:36
PROVIDERS: Visit Provider Orthopaedic Surgery
DX: M25.559 Pain in unspecified hip (principal); Z96.641 Presence of right artificial hip joint
CPT/HCPCS: 72170

== ENCOUNTER 2022-03-15 16:05 | Outpatient (REF) | payer OTHER, SELFPAY | END 2022-03-15 16:06 | disposition home or self-care (01) | LOC: HO.MDS 16:05 | PROVIDERS: Visit Provider Internal Medicine Pulmonary Disease | DX: J45.40 Moderate persistent asthma, uncomplicated (principal) | CPT/HCPCS: J2357 ==

== ENCOUNTER 2022-04-12 12:50 | Outpatient (REF) | payer OTHER, SELFPAY | END 2022-04-12 12:51 | disposition home or self-care (01) | LOC: HO.MDS 12:50 | PROVIDERS: Visit Provider Internal Medicine Pulmonary Disease | DX: J45.40 Moderate persistent asthma, uncomplicated (principal) | CPT/HCPCS: 96372; J2357 ==

== ENCOUNTER 2022-04-17 11:00 | Outpatient (RCR) | payer OTHER, SELFPAY ==
--- NOTE | 2022-03-29 17:31 | MHC.PT.EP ---
[facility] [place] Office [place] Office [place] Office [address] Ema Lawrence [address] [phone] F: [phone] F: [phone] F: [phone] F: [phone] Physical Therapy Plan of Care Date of Evaluation: Date of Surgery: 02/27/22 Diagnosis: R WESLY (RC) Assessment: pt is a 56 y/o female presenting w/ script of R WESLY on 02/27. pt presents to physical therapy with pain, decreased range of motion, decreased strength, impaired functional mobility, impaired postural awareness, and gait deviations. pt is a good candidate for skilled PT due to age, potential remediation of impairments, typical disease/condition progression and prognosis, comorbidities, and motivation. pt would benefit from tailored strengthening and stretching exercise program, functional training, gait training, postural re-training, neuromuscular re-education, modalities as needed for pain, equipment safety demonstration. Frequency and Duration: The patient will be seen 2x/wk for 4 wks Short Term Goals: pt will be I w/ HEP to promote self-management of condition. pt will improve R hip flexion strength to at least 4/5 to promote ease in ascending stairs. Residential Goals: pt will report a statistically significant improvement in self-reported outcome measure, LEFI, to promote return to PLOF. pt will report <2/10 R hip pain w/ ambulation on even ground to promote ease in community ambulation for grocery shopping. Treatment Plan: Modalities to reduce pain, spasms and effusion. Manual therapy to restore motion and function. Therapeutic exercise to improve strength and flexibility. Neuromuscular re-education for posture and balance. Therapeutic activities to return to functional activities of daily living. Electronically signed by: Aurora Hinojosa PT, DPT Please sign and return to therapist. Thank you for your referral.
== END 2022-05-02 17:58 | disposition home or self-care (01) ==
LOC: HO.PT 11:00
PROVIDERS: PCP Internal Medicine; Visit Provider Physician Assistant
DX: Z47.1 Aftercare following joint replacement surgery (principal); Z96.641 Presence of right artificial hip joint
CPT/HCPCS: 97110; 97116; 97162; 97530

== ENCOUNTER 2022-05-18 16:30 | Outpatient (REF) | payer OTHER, SELFPAY ==
[2022-05-18 18:03] LABS: Influenza A PCR NEGATIVE (Negative); Influenza B PCR NEGATIVE (Negative); Resp Syncy Virus RNA Qual PCR POSITIVE (Negative); SARS COV2 PCR INHOUSE NEGATIVE (Negative)
== END 2022-05-18 16:31 | disposition home or self-care (01) ==
LOC: HO.LAB 16:30
PROVIDERS: Visit Provider Physician Assistant
DX: Z20.822 Contact with and (suspected) exposure to COVID-19 (principal)
CPT/HCPCS: 0241U

== ENCOUNTER 2022-05-22 12:23 | Outpatient (REF) | payer OTHER, SELFPAY | END 2022-05-22 12:24 | disposition home or self-care (01) | LOC: HO.MDS 12:23 | PROVIDERS: PCP Internal Medicine; Visit Provider Internal Medicine Pulmonary Disease | DX: J45.40 Moderate persistent asthma, uncomplicated (principal) | CPT/HCPCS: 96372; J2357 ==

== ENCOUNTER 2022-06-19 12:24 | Outpatient (REF) | payer OTHER, SELFPAY | END 2022-06-19 12:25 | disposition home or self-care (01) | LOC: HO.MDS 12:24 | PROVIDERS: Visit Provider Internal Medicine Pulmonary Disease | DX: J45.40 Moderate persistent asthma, uncomplicated (principal) | CPT/HCPCS: 96372; J2357 ==

== ENCOUNTER 2022-07-19 16:29 | Outpatient (REF) | payer OTHER, SELFPAY ==
[2022-07-19 17:19] LABS: Influenza A PCR NEGATIVE (Negative); Influenza B PCR NEGATIVE (Negative); Resp Syncy Virus RNA Qual PCR NEGATIVE (Negative); SARS COV2 PCR INHOUSE NEGATIVE (Negative)
== END 2022-07-19 16:30 | disposition home or self-care (01) ==
LOC: HO.LNP 16:29
PROVIDERS: Visit Provider Physician Assistant Medical
DX: Z20.822 Contact with and (suspected) exposure to COVID-19 (principal); R05.9 Cough, unspecified
CPT/HCPCS: 0241U

== ENCOUNTER 2022-07-20 10:44 | Outpatient (REF) | payer OTHER, SELFPAY | END 2022-07-20 10:45 | disposition home or self-care (01) | LOC: HO.MDS 10:44 | PROVIDERS: Visit Provider Internal Medicine Pulmonary Disease | DX: J45.40 Moderate persistent asthma, uncomplicated (principal); M25.551 Pain in right hip; Z96.641 Presence of right artificial hip joint | CPT/HCPCS: 96372; 99212; J2357 ==

== ENCOUNTER 2022-07-20 13:55 | Outpatient (REF) | payer OTHER, SELFPAY ==
--- NOTE | ~2022-07-20 | XR_ITS ---
EXAMINATION: PELVIS AND RIGHT HIP X-RAY CLINICAL INFORMATION: Hip replacement COMPARISON: Previous x-ray most recent March 2022 TECHNIQUE: AP view of the pelvis and shoot through lateral view of the right hip FINDINGS: There is a right hip replacement in satisfactory position. No fracture dislocation or x-ray evidence of loosening. 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 Bones of the pelvis are normal. Soft tissues are normal. XR/XR hip RT 1V IMPRESSION: Satisfactory appearance of right hip replacement.
--- NOTE | ~2022-07-20 | XR_ITS ---
EXAMINATION: PELVIS AND RIGHT HIP X-RAY CLINICAL INFORMATION: Hip replacement COMPARISON: Previous x-ray most recent March 2022 TECHNIQUE: AP view of the pelvis and shoot through lateral view of the right hip FINDINGS: There is a right hip replacement in satisfactory position. No fracture dislocation or x-ray evidence of loosening. 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 Bones of the pelvis are normal. Soft tissues are normal. XR/XR pelvis 1-2V IMPRESSION: Satisfactory appearance of right hip replacement.
== END 2022-07-20 13:56 | disposition home or self-care (01) ==
LOC: HO.HOSX 13:55
PROVIDERS: Visit Provider Orthopaedic Surgery
DX: M25.551 Pain in right hip (principal)
CPT/HCPCS: 72170; 73501

== ENCOUNTER 2022-08-16 08:16 | Outpatient (REF) | payer OTHER, SELFPAY ==
[2022-08-16 12:02] LABS: Alanine Aminotransferase 42 U/L (0-31); Albumin Level 4.1 g/dL (3.5-5.0); Alkaline Phosphatase 83 U/L (39-117); Anion Gap 12 (12-20); Aspartate Amino Transferase 29 U/L (5-31); Bilirubin Total 0.8 mg/dL (0.0-1.0); Blood Urea Nitrogen 14 mg/dL (9-16); Calcium 8.9 mg/dL (8.4-10.2); Carbon Dioxide 25 mmol/L (22-29); Chloride 106 mmol/L (96-108); Cholesterol 149 mg/dL; Estimated Glomerular Filt Rate > 60; Glucose Fasting 97 mg/dL (60-99); HDL Cholesterol 50 mg/dL; LDL Cholesterol Calculated 71 mg/dl; Potassium 4.2 mmol/L (3.3-5.1); Sodium 139 mmol/L (135-145); Total Protein 6.6 g/dL (6.5-8.0); Triglycerides 142 mg/dL
[2022-08-20 22:08] LABS: Immunoglobulin E 226 kU/L (<OR=114)
== END 2022-08-16 08:17 | disposition home or self-care (01) ==
LOC: HO.HMGCLDS 08:16
PROVIDERS: Internal Medicine Pulmonary Disease; PCP Internal Medicine; Visit Provider Internal Medicine
DX: Z00.00 Encounter for general adult medical examination without abnormal findings (principal); E78.5 Hyperlipidemia, unspecified; Z91.09 Other allergy status, other than to drugs and biological substances
CPT/HCPCS: 36415; 80053; 80061; 82785

== ENCOUNTER 2022-09-12 11:42 | Outpatient (REF) | payer OTHER, SELFPAY | END 2022-09-12 11:43 | disposition home or self-care (01) | LOC: HO.MDS 11:42 | PROVIDERS: Visit Provider Internal Medicine Pulmonary Disease | DX: J45.40 Moderate persistent asthma, uncomplicated (principal) | CPT/HCPCS: 96372; J2357 ==

== ENCOUNTER 2022-10-10 11:59 | Outpatient (REF) | payer OTHER, SELFPAY | END 2022-10-10 12:00 | disposition home or self-care (01) | LOC: HO.MDS 11:59 | PROVIDERS: Visit Provider Internal Medicine Pulmonary Disease | DX: J45.40 Moderate persistent asthma, uncomplicated (principal) | CPT/HCPCS: 96372; J2357 ==

== ENCOUNTER 2022-11-05 08:34 | Outpatient (REF) | payer OTHER, SELFPAY ==
--- NOTE | ~2022-11-05 | XR_ITS ---
EXAMINATION: XR KNEE, RIGHT CLINICAL INFORMATION: Right knee pain COMPARISON: None available. TECHNIQUE: Three views of the right knee. FINDINGS: Bones are well aligned. There is no evidence of fractures or subluxations. There is minimal patellar spurring but no joint effusion. XR/XR knee RT 2V IMPRESSION: Mild degenerative changes in the patellofemoral compartment.
--- NOTE | ~2022-11-05 | XR_ITS ---
EXAMINATION: XR KNEE AP STANDING CLINICAL INFORMATION: Pain in the right knee COMPARISON: None available. TECHNIQUE: AP bilateral AP standing view of bilateral knees and lateral and sunrise view of right knee was obtained. FINDINGS: Bones and soft tissues are normal. No fracture or joint effusion. Alignment is anatomic. There is minimal patellar spurring but no joint effusion. Joint spaces are well maintained. No abnormal soft tissue calcification. XR/XR knee standing BI IMPRESSION: Mild degenerative changes in the patellofemoral compartment.
== END 2022-11-05 08:35 | disposition home or self-care (01) ==
LOC: HO.HOSX 08:34
PROVIDERS: Visit Provider Orthopaedic Surgery
DX: M17.11 Unilateral primary osteoarthritis, right knee (principal)
CPT/HCPCS: 73560; 73565

== ENCOUNTER 2022-11-07 12:19 | Outpatient (REF) | payer OTHER, SELFPAY | END 2022-11-07 12:20 | disposition home or self-care (01) | LOC: HO.MDS 12:19 | PROVIDERS: Visit Provider Internal Medicine Pulmonary Disease | DX: J45.40 Moderate persistent asthma, uncomplicated (principal) | CPT/HCPCS: 96372; J2357 ==

== ENCOUNTER 2022-11-15 11:45 | Outpatient (REF) | payer OTHER, SELFPAY ==
--- NOTE | ~2022-11-15 | MR_ITS ---
EXAMINATION: MR CERVICAL SPINE WITHOUT CONTRAST CLINICAL INFORMATION: Neck pain radiating into arms. COMPARISON: MRI dated 01/12/2021. TECHNIQUE: Multiplanar, multisequential imaging of the cervical spine was performed without contrast. FINDINGS: VERTEBRAL BODIES AND PARASPINAL SOFT TISSUES: The marrow signal is within normal limits. There are mild edematous endplate changes from the C4 through the C6 levels where there is severe disc space narrowing. Mild retrosubluxation evident at the C4-C5 level, unchanged. There are no compression fractures. Mild rightward curvature of the cervical spine noted. The paraspinal soft tissues are unremarkable. The vertebral artery flow-voids are maintained. The imaged lung apices are grossly clear. CERVICOMEDULLARY JUNCTION AND VISUALIZED POSTERIOR FOSSA: The craniovertebral junction and imaged portions of the brain parenchyma appear normal. No cord signal abnormality or syrinx is seen. SPINAL LEVELS: C2-C3: No disc pathology, central canal stenosis, or foraminal narrowing. Mild facet arthropathy. C3-C4: Minimal anterolisthesis and mild endplate spurring. No disc abnormality. Moderate left-sided facet arthropathy, as on prior imaging. No central canal stenosis. Very mild left foraminal narrowing. C4-C5: Vatkwaod-sh-bukuav loss of disc height and retrosubluxation with a broad-based disc-osteophyte complex resulting in mild central canal stenosis and mild bilateral foraminal narrowing, worse on the left side. C5-C6: Disc-osteophyte complex with stable mild central canal stenosis. Mild foraminal narrowing is stable. C6-C7: Retrosubluxation and disc-osteophyte complex. No central canal stenosis or significant foraminal narrowing, otherwise unchanged. C7-T1: Minimal annular bulge. No central canal stenosis or foraminal encroachment. MR/MR cervical spine wo con IMPRESSION: Stable multilevel cervical spondylosis with mild central canal stenosis at the C4-C5 and C5-C6 levels. Moderate left-sided facet arthropathy at the C3-C4 level.
== END 2022-11-15 11:46 | disposition home or self-care (01) ==
LOC: HO.MRI 11:45
PROVIDERS: PCP Internal Medicine; Visit Provider Physician Assistant
DX: M54.2 Cervicalgia (principal)
CPT/HCPCS: 72141

== ENCOUNTER 2022-12-06 11:31 | Outpatient (REF) | payer OTHER, SELFPAY | END 2022-12-06 11:32 | disposition home or self-care (01) | LOC: HO.MDS 11:31 | PROVIDERS: Visit Provider Internal Medicine Pulmonary Disease | DX: J45.40 Moderate persistent asthma, uncomplicated (principal) | CPT/HCPCS: 96372; J2357 ==

== ENCOUNTER 2022-12-18 11:58 | Outpatient (REF) | payer OTHER, SELFPAY ==
[2022-12-18 14:50] LABS: Alanine Aminotransferase 36 U/L (0-31); Albumin Level 4.2 g/dL (3.5-5.0); Alkaline Phosphatase 74 U/L (39-117); Anion Gap 11 (12-20); Aspartate Amino Transferase 29 U/L (5-31); Bilirubin Total 0.9 mg/dL (0.0-1.0); Blood Urea Nitrogen 13 mg/dL (9-16); Calcium 9.5 mg/dL (8.4-10.2); Carbon Dioxide 25 mmol/L (22-29); Chloride 109 mmol/L (96-108); Cholesterol 183 mg/dL; Estimated Glomerular Filt Rate > 60; Glucose Fasting 88 mg/dL (60-99); HDL Cholesterol 63 mg/dL; LDL Cholesterol Calculated 88 mg/dl; Potassium 4.2 mmol/L (3.3-5.1); Sodium 141 mmol/L (135-145); Total Protein 7.2 g/dL (6.5-8.0); Triglycerides 161 mg/dL
== END 2022-12-18 11:59 | disposition home or self-care (01) ==
LOC: HO.LAB 11:58
PROVIDERS: PCP Internal Medicine; Visit Provider Internal Medicine
DX: S52.502A Unspecified fracture of the lower end of left radius, initial encounter for closed fracture (principal); E78.5 Hyperlipidemia, unspecified
CPT/HCPCS: 36415; 80053; 80061

== ENCOUNTER 2022-12-18 12:00 | Outpatient (REF) | payer OTHER, SELFPAY ==
--- NOTE | ~2022-12-18 | XR_ITS ---
EXAMINATION: XR WRIST, left CLINICAL INFORMATION: Pain in left wrist COMPARISON: None available. TECHNIQUE: PA, lateral, and oblique views of the right wrist. FINDINGS: The bones and soft tissues are normal. No fracture. Alignment is anatomic with normal joint spaces. No erosions or abnormal soft tissue calcifications. XR/XR wrist LT w scaphoid IMPRESSION: No bony abnormality.
== END 2022-12-18 12:01 | disposition home or self-care (01) ==
LOC: HO.HOSX 12:00
PROVIDERS: Visit Provider Orthopaedic Surgery
DX: M25.532 Pain in left wrist (principal)
CPT/HCPCS: 73110

== ENCOUNTER 2022-12-18 12:21 | Outpatient (AMB) | payer OTHER, SELFPAY ==
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
[2022-12-18 12:30] VITALS: BMI 30.3
== END 2022-12-18 13:03 | disposition home or self-care (01) ==
PROVIDERS: PCP Internal Medicine; Visit Provider Orthopaedic Surgery
DX: S52.502A Unspecified fracture of the lower end of left radius, initial encounter for closed fracture (principal); M65.4 Radial styloid tenosynovitis [de Quervain]
CPT/HCPCS: 99213

== ENCOUNTER 2023-01-01 08:58 | Outpatient (REF) | payer OTHER, SELFPAY ==
--- NOTE | ~2023-01-01 | XR_ITS ---
EXAMINATION: XR WRIST, LEFT CLINICAL INFORMATION: Pain in left wrist COMPARISON: Left wrist 12/18/2022 TECHNIQUE: PA, lateral, and oblique views of the left wrist. Dedicated scaphoid view. FINDINGS: The bones and soft tissues are normal. No fracture. Alignment is anatomic with normal joint spaces. No erosions or abnormal soft tissue calcifications. XR/XR wrist LT w scaphoid IMPRESSION: No bony abnormality.
== END 2023-01-01 08:59 | disposition home or self-care (01) ==
LOC: HO.HOSX 08:58
PROVIDERS: Visit Provider Orthopaedic Surgery
DX: S52.502A Unspecified fracture of the lower end of left radius, initial encounter for closed fracture (principal)
CPT/HCPCS: 73110

== ENCOUNTER 2023-01-01 10:41 | Outpatient (AMB) | payer OTHER, SELFPAY ==
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
[2023-01-01 11:17] VITALS: BMI 30.3
== END 2023-01-01 11:34 | disposition home or self-care (01) ==
PROVIDERS: PCP Internal Medicine; Visit Provider Orthopaedic Surgery
DX: M65.4 Radial styloid tenosynovitis [de Quervain] (principal); S52.502A Unspecified fracture of the lower end of left radius, initial encounter for closed fracture
CPT/HCPCS: 99213

== ENCOUNTER 2023-01-03 12:24 | Outpatient (REF) | payer OTHER, SELFPAY | END 2023-01-03 12:25 | disposition home or self-care (01) | LOC: HO.MDS 12:24 | PROVIDERS: Visit Provider Internal Medicine Pulmonary Disease | DX: J45.50 Severe persistent asthma, uncomplicated (principal) | CPT/HCPCS: 96372; J2357 ==

== ENCOUNTER 2023-02-06 07:13 | Outpatient (REF) | payer OTHER, SELFPAY ==
--- NOTE | ~2023-02-06 | XR_ITS ---
EXAMINATION: XR WRIST, LEFT WRIST WITH SCAPHOID CLINICAL INDICATIONS: Pain in left wrist. COMPARISON: Left wrist 01/01/2023. TECHNIQUE: 4 views. FINDINGS: There is normal radioulnar-carpal, intercarpal and carpometacarpal joint alignment. No visible acute fracture, dislocation or subluxation seen. No bony erosive changes. The soft tissues are normal. XR/XR wrist LT w scaphoid IMPRESSION: Unremarkable left wrist exam.
== END 2023-02-06 07:14 | disposition home or self-care (01) ==
LOC: HO.HOSX 07:13
PROVIDERS: Visit Provider Orthopaedic Surgery
DX: M25.532 Pain in left wrist (principal)
CPT/HCPCS: 73110; J2357

== ENCOUNTER 2023-02-06 13:06 | Outpatient (AMB) | payer OTHER, SELFPAY ==
[2023-02-06 13:31] VITALS: BMI 30.3
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
== END 2023-02-06 13:48 | disposition home or self-care (01) ==
PROVIDERS: PCP Internal Medicine; Visit Provider Orthopaedic Surgery
DX: S52.502D Unspecified fracture of the lower end of left radius, subsequent encounter for closed fracture with routine healing (principal); M65.4 Radial styloid tenosynovitis [de Quervain]; R20.0 Anesthesia of skin
CPT/HCPCS: 99213

== ENCOUNTER 2023-02-06 13:59 | Outpatient (REF) | payer OTHER, SELFPAY | END 2023-02-06 14:00 | disposition home or self-care (01) | LOC: HO.MDS 13:59 | PROVIDERS: Visit Provider Internal Medicine Pulmonary Disease | DX: J45.50 Severe persistent asthma, uncomplicated (principal) | CPT/HCPCS: 96372; J2357 ==

== ENCOUNTER 2023-02-11 12:38 | Outpatient (AMB) | payer OTHER, SELFPAY ==
--- NOTE | 2023-02-11 12:49 | A.OFFPC_ITS ---
Vital Signs 02/11/23 13:03 Height 5 ft Weight 154 lb BMI 30.1 BP 116/70 Blood Pressure Location Rt brachial Position Sitting Pulse 88 Pulse Source Pulse Oximeter Pulse Oximetry (%) 98 Oxygen Delivery Method Room Air Intake Visit Reasons: Annual checkup Intake Note: Pt i here today for PE. Allergies No Known Allergies Allergy (Verified 02/11/23 13:06) Tobacco use date assessed: 02/11/23 Dental Screening Dental Screen Date: 02/11/23 Did you have a dental visit in the last 12 months?: Yes Did you have a dental problem in the last 6 months where you did not have access to dental care?: No Was dental information given to patient?: Patient has dentist HPI Annual checkup HPI Details Patient presents for physical. She reports intermittent palpitations lasting a few minutes after laying down before going to bed almost every night for 6 more months. Patient has been exercising daily riding a bike for 20 miles and denies palpitations chest pain or shortness of breath with physical activity. Patient denies any change in her lifestyle or stress level. [facility] Medical History Asthma Chronic pain Hyperlipidemia Colorectal polyp detected on colonoscopy Normal Pap smear Alix's disease Interstitial cystitis Annual physical exam Fibromyalgia Surgical History History of total right hip replacement (02/27/22) Hx of unilateral salpingectomy Hx of section H/O colonoscopy Family History Father No problems noted. 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[employer] [place] Housing: House Are you a primary childbirth and infant care teacher to a significant other at home: No Do you presently have visiting nurse or other home services: No Alcohol intake: current Alcohol intake frequency: holidays/special occasions only Patient Tobacco Use Status: Former Tobacco user Quit Date: age 43 Tobacco use type: Cigarette Years Smoked: 20 years e-Cigarette/Vaping Use: Never Used service: No Current occupational status: unemployed Current occupation: at home Cognitive needs: No Hearing needs: No Vision needs: Yes Questionnaire PHQ-9 Over the last 2 weeks, how often have you been bothered by any of the following problems? 1. Little interest or pleasure in doing things: not at all 2. Feeling down, depressed, or hopeless: not at all 3. Trouble falling or staying asleep, or sleeping too much: not at all 4. Feeling tired or having little energy: several days 5. Poor appetite or overeating: not at all 6. Feeling bad about yourself - or that you are a failure or have let yourself or your family down: not at all 7. Trouble concentrating on things, such as reading the newspaper or watching television: not at all 8. Moving or speaking so slowly that other people could have noticed. Or the opposite - being so fidgety or restless that you have been moving around a lot more than usual: not at all 9. Thoughts that you would be better off or of hurting yourself in some way: not at all Total score: 1 Depression Screening Interpretation: Negative Source: Developed by Drs. Sanchez Dominguez, Karissa Neville, Bhavin Tobias and colleagues, with an educational thang from [employer]. Thrive Questionnaire Date Thrive assessed: 02/11/23 I am a: Patient What is your living situation today?: I have a steady place to live Within the past 12 months, did the food you bought not last and you didn't have the money to get more?: Never true Within the past 12 months, did you worry whether your food would run out before you got money to buy more?: Never true Do you have trouble paying for medicines?: No Do you have trouble getting transportation to medical appointments?: No Do you have trouble paying your heating and electricity bill?: No Do you have trouble taking care of your child, family member or friend?: No Do you have trouble with day-to-day activities such as bathing, preparing meals, shopping, managing finances, etc.?: No Are you currently unemployed and looking for a job?: No Are you interested in more education?: No Please select the resources that you would like help with: None Currently or been in a relationship where the following occur: no concerns reported AUDIT C Alcohol Use Questionnaire (AUDIT-C) 1. How often do you have a drink containing alcohol?: Never 3. How often do you have six or more drinks on one occasion?: Never Total Score: 0 VICKIE-7 AMB Questionnaire VICKIE-7 Date VICKIE - 7 assessed: 02/11/23 Feeling nervous, anxious, or on edge: 0 = Not at all Not being able to stop or control worryin = Not at all Worrying too much about different things: 0 = Not at all Trouble relaxin = Not at all Being so restless that it is hard to sit still: 0 = Not at all Becoming easily annoyed or irritable: 1 = Several days Feeling afraid as if something awful might happen: 0 = Not at all Total VICKIE-7 score (0-4 normal; 5-9 mild; 10-14 moderate; 15-21 severe): 1 Source: Developed by Drs. Sanchez Dominguez, Karissa Neville, Bhavin Tobias and colleagues, with an educational thang from [employer]. Review of Systems Const All systems reviewed & are unremarkable except as noted in HPI and below Reports no additional complaints Eyes Reports no additional complaints ENT Reports no additional complaints Card Reports no additional complaints GI Reports no additional complaints Reports no additional complaints Physical exam (Primary Care) Vital Signs: Last Vital Signs Pulse 88 02/11/23 13:03 BP 116/70 02/11/23 13:03 Pulse Ox 98 02/11/23 13:03 Oxygen Delivery Method Room Air 02/11/23 13:03 BMI result Body Mass Index 30.1 Tobacco/Smoking Status: Tobacco use Status Tobacco use date assessed 02/11/23 02/11/23 13:12 Patient Tobacco Use Status Former Tobacco user 02/11/23 12:49 Tobacco use type Cigarette 02/11/23 12:49 e-Cigarette/Vaping Use Never Used 02/11/23 12:49 PHQ-9: PHQ-9 Score PHQ-9: Total score 1 02/11/23 13:12 Depression Screening Interpretation: Negative Thrive Assessment: Date of Thrive Assessment Date Thrive assessed 02/11/23 02/11/23 13:12 Currently or been in a relationship where the following occur: no concerns reported Const General: no acute distress HENMT Ears: hearing grossly normal bilaterally Face and sinus: Yes normal facial exam Throat: Yes posterior oropharynx normal Resp Effort & Inspection: normal respiratory effort Auscultation: clear to auscultation bilaterally Cardio Rhythm: regular rhythm Heart sounds: S1 normal heart sound present, S2 normal heart sound present and Murmur heart sound present systolic early and II/ GI Inspection: Yes normal to inspection Palpation (GI): Soft to palpation Percussion: Yes normal to percussion Auscultation: normal bowel sounds Skin General skin exam: no rashes or lesions noted Extrem General: Yes no clubbing, cyanosis or edema Assessment and Plan Assessment & Plan (1) Hyperlipidemia: Code(s): E78.5 - Hyperlipidemia, unspecified Plan: Continue statin (2) Alix's disease: Comment: this diagnosis was entered by PCP-patient denies any thyroid diagnoses, was told to have yearly thyroid labs drawn, not on any thyroid Rx Code(s): E06.3 - Autoimmune thyroiditis Plan: Check TSH (3) Heart murmur: Code(s): R01.1 - Cardiac murmur, unspecified Plan: Obtain echocardiogram (4) Palpitations: Code(s): R00.2 - Palpitations Plan: EKG showed normal sinus rhythm no ST-T change. Check CBC TSH and obtain 48 hour Holter monitor. Patient will follow-up in 2 months Orders: Orders TSH reflex Free T4 Today E06.3 - Autoimmune thyroiditis, E78.5 - Hyperlipidemia, unspecified CA echo transthoracic complete Today R00.2 - Palpitations, R01.1 - Cardiac murmur, unspecified ECG holter monitor 48 hour Today R00.2 - Palpitations Complete Blood Count Auto Diff Today E06.3 - Autoimmune thyroiditis, E78.5 - Hyperlipidemia, unspecified Coding Level of Care Code Est Pt Prev Care 40-64y(70592) Diagnoses Hyperlipidemia E78.5 Alix's disease E06.3 Heart murmur R01.1 Palpitations R00.2
[2023-02-11 13:03] VITALS: BP 116/70; PULSE 88; O2SAT 98; BMI 30.1
== END 2023-02-11 13:31 | disposition home or self-care (01) ==
PROVIDERS: Visit Provider Internal Medicine
DX: Z00.00 Encounter for general adult medical examination without abnormal findings (principal); E78.5 Hyperlipidemia, unspecified; E06.3 Autoimmune thyroiditis; R01.1 Cardiac murmur, unspecified; R00.2 Palpitations
CPT/HCPCS: 99396

== ENCOUNTER 2023-02-11 13:34 | Outpatient (REF) | payer OTHER, SELFPAY ==
[2023-02-11 15:53] LABS: MANUAL DIFF FLAG NO
[2023-02-11 16:22] LABS: Cholesterol 162 mg/dL (<200); HDL Cholesterol 68 mg/dL (>40); LDL Cholesterol Calculated 70 mg/dL (<100); Triglycerides 120 mg/dL (<150)
[2023-02-11 16:28] LABS: Basophils Percent Auto 0.8 % (0-2); Eosinophils Absolute Auto 0.1 X10*3/uL (0.0-0.4); Eosinophils Percent Auto 2.8 % (0-4); Hematocrit 36.3 % (37.0-47.0); Hemoglobin 12.2 g/dl (12.0-16.0); Imm Gran Abs Auto 0.01 X10*3/uL (0.00-0.03); Imm Gran Pct Auto 0.3 % (0.0-0.4); Lymphocytes Absolute Auto 1.9 X10*3/uL (1.2-4.9); Lymphocytes Percent Auto 46.5 % (20-40); Mean Corpuscular HGB Conc 33.6 g/dl (31.0-35.0); Mean Corpuscular Hemoglobin 29.8 pg (27.0-33.0); Mean Corpuscular Volume 88.8 fL (80.0-98.0); Mean Platelet Volume 10.5 fL (9.4-12.3); Monocytes Absolute Auto 0.3 X10*3/uL (0.1-1.2); Monocytes Percent Auto 6.8 % (2-11); Neutrophils Absolute Auto 1.7 x10*3/uL (2.0-8.3); Neutrophils Percent Auto 42.8 % (45-73); Platelet Count 279 X10*3/uL (160-400); Red Blood Count 4.09 X10*6/uL (4.20-5.50)
[2023-02-11 16:39] LABS: TSH reflex Free T4 1.33 uIU/mL (0.32-4.0)
== END 2023-02-11 13:35 | disposition home or self-care (01) ==
LOC: HO.HMGCLDS 13:34
PROVIDERS: PCP Internal Medicine; Visit Provider Internal Medicine
DX: E78.5 Hyperlipidemia, unspecified (principal); E06.3 Autoimmune thyroiditis; R00.2 Palpitations; R01.1 Cardiac murmur, unspecified
CPT/HCPCS: 36415; 80061; 84443; 85025

== ENCOUNTER 2023-02-20 10:15 | Outpatient (AMB) | payer OTHER, SELFPAY ==
--- NOTE | 2023-02-20 10:19 | MHC.OFFVIS ---
Intake Vital Signs 02/20/23 10:20 Height 5 ft Weight 155 lb 3.287 oz BMI 30.3 BP 110/70 Blood Pressure Location Rt brachial Position Sitting Pulse 79 Pulse Source Pulse Oximeter Temp 97.4 F Temp Source Skin Pulse Oximetry (%) 99 Oxygen Delivery Method Room Air Intake Visit Reasons: FM/OA Intake Note: Patient here to follow up on FM and OA. Wireless Manager Required: No Accompanied by: Self / Same As Patient Allergies No Known Allergies Allergy (Verified 02/20/23 10:28) HPI HPI Comments History of Present Illness Details The patient returns for evaluation of her osteoarthritis and fibromyalgia. She did undergo a right total hip replacement a year ago and that is working out quite well for her. She is able to do more walking although still has some discomfort in the other knee and in the lower back. She has been exercising on a bicycle which she finds very helpful. She says she is able to ride 20 miles at a time. She remains on the Cymbalta 60 mg daily and meloxicam 15 mg daily. She feels the meloxicam is very helpful in controlling her symptoms particularly with respect to her back, knees and hands. [facility] Medical History (Updated 02/20/23 @ 13:57 by Joe Sosa MD) Asthma Chronic pain Hyperlipidemia Colorectal polyp detected on colonoscopy Normal Pap smear Alix's disease Interstitial cystitis Annual physical exam Fibromyalgia Surgical History (Updated 02/20/23 @ 13:56 by Joe Sosa MD) History of total right hip replacement (02/27/22) Hx of unilateral salpingectomy Hx of section H/O colonoscopy Family History Father No problems noted. 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[employer] [place] Housing: House Are you a primary director career to a significant other at home: No Do you presently have visiting nurse or other home services: No Alcohol intake: current Alcohol intake frequency: holidays/special occasions only Patient Tobacco Use Status: Former Tobacco user Quit Date: age 43 Tobacco use type: Cigarette Years Smoked: 20 years e-Cigarette/Vaping Use: Never Used service: No Current occupational status: unemployed Current occupation: at home Cognitive needs: No Hearing needs: No Vision needs: Yes Review of Systems Const Details: Negative for appetite change, weight change, fever, chills, malaise and fatigue Eyes Details: Negative for vision change, dry eyes,headaches and dizziness Card Details: Negative chest pain, edema and syncope Resp Details: Negative for SOB, cough and wheezing GI Details: Negative indigestion/heartburn, nausea, abdominal pain, bowel changes, diarrhea, constipation and bloody stool. Psych Details: Negative for anxiety, depression and stress Alce/Lymph Details: Negative for excessive bruising or bleeding. Physical Exam Vital Signs: Last Vital Signs Temp 97.4 F 02/20/23 10:20 Pulse 79 02/20/23 10:20 BP 110/70 02/20/23 10:20 Pulse Ox 99 02/20/23 10:20 Oxygen Delivery Method Room Air 02/20/23 10:20 BMI result Body Mass Index 30.3 APPEARANCE: Patient in no acute distress EYES no redness, pupils equal and reactive to light, eyelids normal. No temporal artery tenderness, redness or swelling. EXTREMITIES: No edema, no calf tenderness, normal peripheral pulses. NEURO: Oriented and alert x3. No focal weakness. Reflexes symmetric. Gait normal. SKIN: No inflammatory or neoplastic lesions. Normal color and turgor JOINT EXAM:?? Cervical Spine:.? Full range of motion with mild discomfort at the extremes. No tenderness. Thoracic Spine:.? No scoliosis.? No tenderness on palpation. Lumbar Spine:.? Alignment normal.? Full range of motion with mild pain with flexion at 75 degrees. No tenderness. Chest Wall:.? No tenderness, swelling, increased warmth or erythema. Hands:.? Normal pain-free range of motion with slight tenderness at the base of the thumbs. There is also some minimal tenderness across the PIP joint but they do not look to be swollen today. No flexor tendon triggering, thenar atrophy or sensory loss. Wrists:.? Normal pain-free range of motion without tenderness, swelling, increased warmth or erythema. Elbows:. Normal pain-free range of motion without tenderness, swelling, increased warmth or erythema. Shoulders:.?? Full range of motion with mild pain at the extremes of normal range of motion. There is some mild anterior tenderness without adenopathy, weakness, swelling, increased warmth or erythema. Hips:.? Full range of motion with some lumbar pain with extremes of internal and external rotation. Hip bursa:.? Mild trochanteric tenderness. Knees:.?? Normal pain-free range of motion with slight medial compartment tenderness in the right knee. The knees have no effusions, swelling, increased warmth or erythema.? Ankles:? Normal pain-free range of motion without tenderness, swelling, increased warmth or erythema. Feet:? Normal pain-free range of motion. There is some slight tenderness in the instep where there is some bony enlargement. Slight tenderness in the 1st MTP bilaterally without swelling, increased warmth or erythema. Tender points:? Mild tenderness to digital palpation at the occiput, trapezius, second rib, lateral epicondyle, knees, greater trochanter and gluteal area bilaterally. ? Results Reviewed Results Reviewed: Laboratory Tests 10/24/21 12/18/22 02/11/23 13:41 13:10 13:40 WBC 4.0 L RBC 4.09 L Hgb 12.1 12.2 D Creatinine 0.80 Assessment & Plan Assessment & Plan (1) History of total right hip replacement: Onset Date: 02/27/22 Comment: Dr. Conner -02/2022 Code(s): Z96.641 - Presence of right artificial hip joint (2) Osteoarthritis of right knee: Code(s): M17.11 - Unilateral primary osteoarthritis, right knee (3) Osteoarthritis of lumbar spine: Code(s): M47.816 - Spondylosis without myelopathy or radiculopathy, lumbar region (4) Cervical osteoarthritis: Code(s): M47.812 - Spondylosis without myelopathy or radiculopathy, cervical region (5) Fibromyalgia: Comment: Chronic diffuse muscle and body aches. Tried multiple medications in the past, had side effects Code(s): M79.7 - Fibromyalgia Plan: She has osteoarthritis in the cervical spine, lumbar spine, hands and knees. She is doing okay with current treatment with meloxicam and Cymbalta. There are many tender points so she additionally has some underlying fibromyalgia. The blood work looks good so I think the meloxicam can be continued. Her primary doctor could continue these refills otherwise we could recheck her in about a year. Coding Level of Care Code Est Pt Level 3 (14237) Diagnoses History of total right hip replacement Z96.641 Osteoarthritis of right knee M17.11 Osteoarthritis of lumbar spine M47.816 Cervical osteoarthritis M47.812 Fibromyalgia M79.7
[2023-02-20 10:20] VITALS: BP 110/70; PULSE 79; TEMP 36.3; O2SAT 99; BMI 30.3
== END 2023-02-20 11:01 | disposition home or self-care (01) ==
PROVIDERS: PCP Internal Medicine; Visit Provider Internal Medicine Rheumatology
DX: Z96.641 Presence of right artificial hip joint (principal); M17.11 Unilateral primary osteoarthritis, right knee; M47.816 Spondylosis without myelopathy or radiculopathy, lumbar region; M47.812 Spondylosis without myelopathy or radiculopathy, cervical region; M79.7 Fibromyalgia
CPT/HCPCS: 99213

== ENCOUNTER 2023-02-20 11:10 | Outpatient (REF) | payer OTHER, SELFPAY | END 2023-02-20 11:11 | disposition home or self-care (01) | LOC: HO.MAMMO 11:10 | PROVIDERS: PCP Internal Medicine; Visit Provider Internal Medicine | DX: Z12.31 Encounter for screening mammogram for malignant neoplasm of breast (principal) | CPT/HCPCS: 77063; 77067 ==

== ENCOUNTER → 2023-02-20 11:45 | Outpatient (BNV) | payer OTHER, SELFPAY | PROVIDERS: PCP Internal Medicine; Visit Provider Radiology Diagnostic Radiology | DX: Z12.31 Encounter for screening mammogram for malignant neoplasm of breast (principal) | CPT/HCPCS: 77063; 77067 ==

== ENCOUNTER 2023-03-01 10:35 | Outpatient (REF) | payer OTHER, SELFPAY ==
--- NOTE | 2023-03-01 10:37 | EMG_ITS ---
Chief complaint: 20 years of bilateral hand pain/numbness, neck pain Reason for referral: Evaluate for Carpal Tunnel Syndrome versus radiculopathy Referred by: Dr. Sainz Procedure done: Bilateral upper extremities NCS/EMG Precautions and/or limitations: None The limb temperature was monitored continuously and remained between 32-36 degrees C during the performance of the NCS. Nerve Conduction Studies Anti Sensory Summary Table ?Stim Site NR Onset (ms) Norm Onset (ms) Peak (ms) Norm Peak (ms) O-P Amp (?V) Norm O-P Amp Site1 Site2 Delta-0 (ms) Dist (cm) Narciso (m/s) Norm Narciso (m/s) Left Median Anti Sensory (2nd Digit) Wrist ? 3.2 3.8 <3.6 16.7 >10 Wrist 2nd Digit 3.2 14.0 44 Right Median Anti Sensory (2nd Digit) Wrist ? 3.6 4.4 <3.6 4.9 >10 Wrist 2nd Digit 3.6 17.5 49 Right Radial Anti Sensory (Thumb) Forearm ? 1.5 1.9 <3.1 26.1 Forearm Thumb 1.5 0.0 Left Ulnar Anti Sensory (5th Digit) Wrist ? 2.4 3.1 <3.7 34.4 >15.0 Wrist 5th Digit 2.4 14.0 58 Right Ulnar Anti Sensory (5th Digit) Wrist ? 2.6 3.2 <3.7 29.5 >15.0 Wrist 5th Digit 2.6 14.0 54 Motor Summary Table ?Stim Site NR Onset (ms) Norm Onset (ms) O-P Amp (mV) Norm O-P Amp iAmp (mV) Amp (1st) (%) Site1 Site2 Delta-0 (ms) Dist (cm) Narciso (m/s) Norm Narciso (m/s) Left Median Motor (Abd Poll Brev) Wrist ? 3.8 <3.9 8.5 >4.5 10.3 100.0 Elbow Wrist 3.5 17.0 49 >45 Elbow ? 7.3 8.4 10.0 98.8 Right Median Motor (Abd Poll Brev) Wrist ? 4.8 <3.9 10.4 >4.5 12.5 100.0 Elbow Wrist 3.2 17.0 53 >45 Elbow ? 8.0 9.5 11.6 91.3 Left Ulnar Motor (Abd Dig Minimi) Wrist ? 2.3 <3.0 4.9 >5 5.7 100.0 B Elbow Wrist 2.7 15.5 57 >45 B Elbow ? 5.0 4.6 5.5 93.9 A Elbow B Elbow 2.0 10.0 50 >45 A Elbow ? 7.0 3.8 4.6 77.6 Right Ulnar Motor (Abd Dig Minimi) Wrist ? 2.9 <3.0 9.3 >5 11.2 100.0 B Elbow Wrist 2.8 15.5 55 >45 B Elbow ? 5.7 9.2 11.0 98.9 A Elbow B Elbow 1.5 10.0 67 >45 A Elbow ? 7.2 9.2 10.8 98.9 EMG ?Side Muscle Nerve Root Ins Act Fibs Psw Amp Dur Poly Recrt Int Pat Comment Right 1stDorInt Ulnar C8-T1 Nml Nml Nml Nml Nml 0 Nml Complete Right FlexCarRad Median C6-7 Nml Nml Nml Nml Nml 0 Nml Complete Right Biceps Musculocut C5-6 Nml Nml Nml Nml Nml 0 Nml Complete Right Triceps Radial C6-7-8 Nml Nml Nml Nml Nml 0 Nml Complete Right Deltoid Axillary C5-6 Nml Nml Nml Nml Nml 0 Nml Complete Left 1stDorInt Ulnar C8-T1 Nml Nml Nml Nml Nml 0 Nml Complete Left FlexCarRad Median C6-7 Nml Nml Nml Nml Nml 0 Nml Complete Left Biceps Musculocut C5-6 Nml Nml Nml Nml Nml 0 Nml Complete Left Triceps Radial C6-7-8 Nml Nml Nml Nml Nml 0 Nml Complete Left Deltoid Axillary C5-6 Nml Nml Nml Nml Nml 0 Nml Complete Paraspinal EMG ?Side Muscle Nerve Root Ins Act Fibs Psw Comment Right Cervical Upper Rami Nml Nml Nml Right Cervical Mid Rami Nml Nml Nml Right Cervical Lower Rami Nml Nml Nml Left Cervical Upper Rami Nml Nml Nml Left Cervical Mid Rami Nml Nml Nml Left Cervical Lower Rami Nml Nml Nml FINDINGS: Right median motor nerve showed prolonged distal latency, normal amplitude and normal conduction velocity. Bilateral median sensory nerves showed prolonged peak latency. All other nerves tested were within normal. Concentric needle EMG was performed in selected muscles of the bilateral upper extremity and cervical paraspinals. Study did not reveal signs of electric abnormalities as shown in the table below. IMPRESSION: 1. This is an abnormal study. 2. There is electrodiagnostic evidence for right moderate-severe and left mild median neuropathy at the wrists, consistent with carpal tunnel syndrome. 3. There is no electrodiagnostic evidence for ulnar neuropathy, brachial plexopathy, or cervical radiculopathy. Thank you for your kind referral. Edna Mitchell MD, LEAH Board Certified, [place] Board [employer] and Rehabilitation (ABPMR) Board Certified, [place] Board of Electrodiagnostic Medicine (ABEM) CODIN 29405 x2 MTDD
== END 2023-03-01 10:36 | disposition home or self-care (01) ==
LOC: HO.NEURO 10:35
PROVIDERS: PCP Internal Medicine; Visit Provider Orthopaedic Surgery
DX: R20.0 Anesthesia of skin (principal); R20.2 Paresthesia of skin
CPT/HCPCS: 95886; 95911

== ENCOUNTER → 2023-03-01 10:37 | Outpatient (BNV) | payer OTHER, SELFPAY | PROVIDERS: PCP Internal Medicine; Visit Provider Physical Medicine & Rehabilitation | DX: G56.13 Other lesions of median nerve, bilateral upper limbs (principal); G56.03 Carpal tunnel syndrome, bilateral upper limbs | CPT/HCPCS: 95886; 95911 ==

== ENCOUNTER 2023-03-06 14:04 | Outpatient (REF) | payer OTHER, SELFPAY | END 2023-03-06 14:05 | disposition home or self-care (01) | LOC: HO.MDS 14:04 | PROVIDERS: Visit Provider Internal Medicine Pulmonary Disease | DX: J45.50 Severe persistent asthma, uncomplicated (principal) | CPT/HCPCS: 96372; J2357 ==

== ENCOUNTER → 2023-03-19 11:01 | Outpatient (REF) | payer OTHER, SELFPAY ==
--- NOTE | 2023-03-19 11:04 | CA_ITS ---
Transthoracic Echocardiogram Patient (Last, First, Middle): Petty Li E Gender: Female Date of : 1965 Age: 57 Procedure Date: 03/19/2023 Procedure Type: Transthoracic Echocardiogram Location: OP Height: 152.4 cm Weight: 69.85 kg BSA: 1.67 m2 Heart Rate: bpm BP: 117 / 68 mmHg Lathe Spotter: GARCÍA Referring MD: Colette Mazariegos MD Symptoms: R00.2 - Palpitations Study Quality: Adequate ECG Rhythm: Sinus Conclusions: - The left ventricular systolic function is normal. The calculated ejection fraction is 65% by biplane method. - There is mild mitral annular calcification. - The left atrium is mildly dilated. Findings Left Ventricle Normal left ventricular cavity size. There is normal left ventricular wall thickness. The left ventricular systolic function is normal. The calculated ejection fraction is 65% by biplane method. There is no evidence of regional wall motion abnormalities. Diastolic function is normal for age. LV peak GLS -19.9%. Right Ventricle Normal right ventricular cavity size and systolic function. Atria The left atrium is mildly dilated. The right atrium is normal in size. Aortic Valve The aortic valve structure and function is likely normal. There is no aortic valve stenosis. There is trace (trivial) aortic valve regurgitation. Mitral Valve There is mild mitral annular calcification. There is no mitral valve regurgitation. There is no mitral valve stenosis. Pulmonic Valve The pulmonic valve is likely normal. Tricuspid Valve There is trace tricuspid valve regurgitation. There is no evidence of pulmonary hypertension. Great Vessels The asc aorta is normal in size. Venous The inferior vena cava is normal in size and collapses greater than 50% with inspiration. Pericardium/Pleural There is no evidence of pericardial effusion. Prior Study Comparison No prior study available for comparison. Measurements 2D Linear Measurements IVSd: 0.74 0.6-0.9/0.6-1.0 cm LVIDd: 4.42 3.9-5.3/4.2-5.9 cm LVIDd Index: 2.65 2.4-3.2/2.2-3.1 cm/m2 LVIDs: 2.90 2.0-3.6 cm LVPWd: 0.84 0.7-1.1 cm LA Diam: 3.00 2.7-3.8/3.0-4.0 cm LAIDs Index: 1.80 1.5-2.3 cm/m2 LV Mass: 135.06 67-162/88-224 g LV Mass Index: 80.87 43-95/49-115 g/m2 LVOT Diam: 2.00 3.0+(-)1.3 cm 2D Systolic Function EF 4C: 62.40 >55% EF 2C: 69.50 >55% EF BiP: 65.30 >55% Mitral Valve MV Pk E: 1.00 MV PK A: 0.99 MV Decel Time: 210.00 E/A: 1.00 E'Lateral: 9.70 E'Medial: 7.40 E/E' Med: 13.50 E/E' Lat: 10.30 PHT: 62.00 MVA PHT: 3.55 Decel [place]: 4.74 Aortic Valve AoV Pk Narciso: 1.37 AoV Mn Narciso: 0.83 AoV VTI: 0.32 AoV Pk Grad: 8.00 Aov Mn Grad: 3.00 DESMOND Cont.VTI: 2.44 LVOT LVOT Pk Narciso: 1.16 LVOT Mn Narciso: 0.75 LVOT VTI: 0.25 LVOT Pk Grad: 5.00 LVOT Mn Grad: 3.00 LVOT Diam: 2.00 LVOT Area: 3.14 Diastolic Function MV Pk E: 1.00 MV Pk A: 0.99 E/A: 1.00 E'Medial: 7.40 E/E' Med: 13.50 E' Laterial: 9.70 E/E' Lat: 10.30 Right Ventricle TAPSE (mm): 24.40 TVS' Narciso: 12.60 Tricuspid Valve RA Press: 3.00 Great Vessels Aorta Sinus of Valsalva: 3.33 2.0-3.[address] [place]: 2.34 1.7-3.4 cm Ao Asc: 2.90 2.1-3.4 cm Ao Arch: 2.60 Updated in Other Vendor System with Status of Final Law Rowland MD electronically signed on 03/20/2023 11:03:29 AM with status of Final
--- NOTE | 2023-03-19 11:04 | HM_ITS ---
Conclusion: 1. Patient was monitored for total period of 1 day and 23 hours 2. Baseline was normal sinus rhythm with average heart of 89 beats per minute 3. Occasional PACs noted with total burden of 0.5% 4. Two short runs of SVT consistent with SVT, longest lasting 7 beats and the fastest 137 beats per minute 5. No significant pauses noted 6. No patient reported symptoms MTDD
== END ==
LOC: HO.CARD 11:01
PROVIDERS: PCP Internal Medicine; Visit Provider Internal Medicine
DX: R00.2 Palpitations (principal); R01.1 Cardiac murmur, unspecified
CPT/HCPCS: 93225; 93306; 93356

== ENCOUNTER → 2023-03-19 11:04 | Outpatient (BNV) | payer OTHER, SELFPAY | PROVIDERS: PCP Internal Medicine; Visit Provider Internal Medicine | DX: I47.10 Supraventricular tachycardia, unspecified (principal) | CPT/HCPCS: 93227; 93306 ==

== ENCOUNTER 2023-04-02 10:32 | Outpatient (AMB) | payer OTHER, SELFPAY ==
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
[2023-04-02 10:40] VITALS: BMI 30.3
== END 2023-04-02 11:11 | disposition home or self-care (01) ==
PROVIDERS: PCP Internal Medicine; Visit Provider Orthopaedic Surgery
DX: G56.03 Carpal tunnel syndrome, bilateral upper limbs (principal); S52.502D Unspecified fracture of the lower end of left radius, subsequent encounter for closed fracture with routine healing; M65.4 Radial styloid tenosynovitis [de Quervain]; M79.7 Fibromyalgia
CPT/HCPCS: 99214

== ENCOUNTER → 2023-04-02 10:32 | Outpatient (BNVA) | payer OTHER, SELFPAY | PROVIDERS: PCP Internal Medicine; Visit Provider Orthopaedic Surgery ==

== ENCOUNTER 2023-04-03 14:09 | Outpatient (REF) | payer OTHER, SELFPAY | END 2023-04-03 14:10 | disposition home or self-care (01) | LOC: HO.MDS 14:09 | PROVIDERS: Visit Provider Internal Medicine Pulmonary Disease | DX: J45.50 Severe persistent asthma, uncomplicated (principal) | CPT/HCPCS: 96372; J2357 ==

== ENCOUNTER 2023-05-07 14:09 | Outpatient (REF) | payer OTHER, SELFPAY | END 2023-05-07 14:10 | disposition home or self-care (01) | LOC: HO.MDS 14:09 | PROVIDERS: Visit Provider Internal Medicine Pulmonary Disease | DX: J45.50 Severe persistent asthma, uncomplicated (principal) | CPT/HCPCS: 96372; J2357 ==

== ENCOUNTER 2023-06-17 09:21 | Day surgery (SDC) | payer OTHER, SELFPAY ==
[2023-06-17 10:41] VITALS: BMI 30.8
[2023-06-17 11:53] LABS: Glucose, Whole Blood 127 mg/dL (60-115)
--- NOTE | 2023-06-17 13:04 | MHC.SHP ---
Pre-Procedural Eval Section A Date of Service: 06/17/23 The patient is an INPATIENT: No Changes since office visit: No Cold of Flu in the past 2 weeks, No New Medical Problems, No Changes in Medication and No Patient answered all questions The History & Physical has been completed within 30 days and I have reviewed it.: Yes Section B Chief Complaint: Carpal tunnel syndrome, right upper limb Allergies: Allergies Allergy/AdvReac Type Severity Reaction Status Date / Time No Known Allergies Allergy Verified 04/02/23 10:47 Exam Exam Comment: Please note: About 15 or 20 minutes after her injection she started to feel nauseous and felt sweaty. Her blood pressure was noted to be somewhat low. Anesthesia came and started an IV. Her condition improved within about 15 minutes or so. We again talked about surgery and whether she wished to proceed. The patient wished to proceed with surgery and said that she was feeling fine. Plan I have reviewed the history and physical and performed a pertinent physical examination on my patient. No changes have occurred unless specified. Time Spent With Patient Time: Total time managing care of this patient today ____ minutes.
--- NOTE | 2023-06-17 13:18 | PC.NURSE ---
patient c/o SOB, nausea stating I don't feel good. after local block to right hand. patient diaphoretic. patient HOB lowered, cold towel placed to forehead. IV started to left hand. BP 52/21. HR stable 80's. Anesthesiologists Dr. Strong, Dr. Ansari and Dr. Abbasi, Surgeon Dr. Sainz all at bedside to evaluated. 2L NC sating 96%. IVF bolus started. patient positioned to right side for nausea and vomiting. patient conversing with staff. Repeat BP 125/61, patient states I'm feeling better.
[2023-06-17 13:30] VITALS: BP 165/75; PULSE 76; RESP 16; TEMP 36.3; O2SAT 97
--- NOTE | 2023-06-17 13:32 | W.PM.OPN ---
Operative Note Operative Note Date of Service: 06/17/23 Narrative: Preop diagnosis: 1. Right Carpal tunnel syndrome Postop diagnosis: same Procedure: 1. Right Carpal tunnel release Surgeon: Eva Sainz MD Anesthesia: local block using 1% lidocaine with epinephrine Findings: Thickened transverse carpal ligament. EBL: Less than 5 mL Specimens: None Complications: None Disposition: Brought to recovery room in stable condition Plan: Follow-up for 10-14 days for wound check and suture removal Indications: The patient is 57 years old, with right carpal tunnel syndrome that has been unresponsive to nonoperative management. The risks and benefits of operative treatment including but not limited to risk of damage to blood vessels, nerves, tendons, infection, persistent pain, persistent symptoms, or possible need for additional surgery were discussed with the patient and the patient wishes to proceed with surgery. Procedure: Once consent was obtained a local block was performed using a combination of 1% lidocaine with epinephrine. The patient was then brought back to the operating suite and placed on the operative table in supine position. The right upper extremity was prepped and draped in a standard surgical fashion. Once assured that we had a good block, a 2.0 cm longitudinal incision was made centered over the carpal tunnel. The incision was made through the skin to the subcutaneous tissues using a #15 blade. Dissection was made down to the level of the transverse carpal ligament with care being taken to protect the palmar cutaneous nerve. Once the transverse carpal ligament was clearly visualized, a longitudinal incision was made in the transverse carpal ligament 1st using a #15 blade, then using tenotomy scissors under direct visualization. Care was taken to look for and protect the motor branch of the median nerve when seen in this area. Once satisfied with our carpal tunnel release the wound was copiously irrigated with normal saline and hemostasis was obtained with a brief period of local pressure. The skin edges were reapproximated with some 5.0 nylon suture material and a sterile dressing was applied. The patient appears to have tolerated the procedure well and with no complications. All digits were well vascularized at the conclusion of the case.
== END 2023-06-17 13:49 | disposition home or self-care (01) ==
PROVIDERS: PCP Internal Medicine; Visit Provider Orthopaedic Surgery
PROC: (CPT 64721; principal; 2023-06-17 11:10)
DX: G56.01 Carpal tunnel syndrome, right upper limb (principal); G89.29 Other chronic pain; R20.0 Anesthesia of skin; M79.7 Fibromyalgia; J45.909 Unspecified asthma, uncomplicated; E78.5 Hyperlipidemia, unspecified; E06.3 Autoimmune thyroiditis; Z87.891 Personal history of nicotine dependence
CPT/HCPCS: 64721; 82947; J0171

== ENCOUNTER → 2023-06-17 09:21 | Outpatient (BNV) | payer OTHER, SELFPAY | PROVIDERS: PCP Internal Medicine; Visit Provider Orthopaedic Surgery | DX: G56.01 Carpal tunnel syndrome, right upper limb (principal) | CPT/HCPCS: 64721 ==

== ENCOUNTER 2023-07-02 12:50 | Outpatient (AMB) | payer OTHER, SELFPAY ==
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
[2023-07-02 13:03] VITALS: BMI 30.6
== END 2023-07-02 13:33 | disposition home or self-care (01) ==
PROVIDERS: PCP Internal Medicine; Visit Provider Orthopaedic Surgery
DX: S52.502A Unspecified fracture of the lower end of left radius, initial encounter for closed fracture (principal); M65.4 Radial styloid tenosynovitis [de Quervain]; G56.01 Carpal tunnel syndrome, right upper limb; G56.02 Carpal tunnel syndrome, left upper limb; M79.7 Fibromyalgia
CPT/HCPCS: 99024

== ENCOUNTER → 2023-07-02 12:50 | Outpatient (BNVA) | payer OTHER, SELFPAY | PROVIDERS: PCP Internal Medicine; Visit Provider Orthopaedic Surgery ==

== ENCOUNTER 2023-08-07 13:32 | Outpatient (REF) | payer OTHER, SELFPAY ==
[2023-08-07 13:44] VITALS: BP 116/72; PULSE 81; RESP 18; TEMP 36.7; O2SAT 96; BMI 31.0
[2023-08-07] MEDS: Omalizumab 150 MG/ML SYRINGE SUBCUT (13:48)
== END 2023-08-07 13:33 | disposition home or self-care (01) ==
LOC: HO.MDS 13:32
PROVIDERS: Visit Provider Internal Medicine Pulmonary Disease
DX: J45.50 Severe persistent asthma, uncomplicated (principal)
CPT/HCPCS: 96372; J2357

== ENCOUNTER 2023-10-08 11:25 | Outpatient (AMB) | payer OTHER, SELFPAY ==
[2023-10-08 11:27] VITALS: BMI 30.2
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
== END 2023-10-08 11:44 | disposition home or self-care (01) ==
PROVIDERS: PCP Internal Medicine; Visit Provider Orthopaedic Surgery
DX: M65.4 Radial styloid tenosynovitis [de Quervain] (principal); M67.431 Ganglion, right wrist; G56.03 Carpal tunnel syndrome, bilateral upper limbs; M79.7 Fibromyalgia
CPT/HCPCS: 99213

== ENCOUNTER → 2023-10-08 11:25 | Outpatient (BNVA) | payer OTHER, SELFPAY | PROVIDERS: PCP Internal Medicine; Visit Provider Orthopaedic Surgery ==

== ENCOUNTER 2023-11-04 12:04 | Outpatient (REF) | payer OTHER, SELFPAY ==
--- NOTE | ~2023-11-04 | XR_ITS ---
EXAMINATION: XR PELVIS CLINICAL INFORMATION: Patient COMPARISON: Pelvis radiograph 07/20/2022 TECHNIQUE: AP view of the pelvis. FINDINGS: Status post right total hip arthroplasty. No evidence of hardware fracture, indication. Mild to moderate osteoporosis of the left hip with loss of superolateral joint space and collar osteophytes similar to prior. Sacroiliac joint spaces are maintained. Few calcified phleboliths in the pelvis. XR/XR pelvis 1-2V IMPRESSION: 1. Status post right total hip arthroplasty. No evidence of hardware fracture, indication. 2. Mild to moderate degenerative changes of the left hip similar to prior.
== END 2023-11-04 12:05 | disposition home or self-care (01) ==
LOC: HO.HOSX 12:04
PROVIDERS: Visit Provider Orthopaedic Surgery
DX: T84.84XA Pain due to internal orthopedic prosthetic devices, implants and grafts, initial encounter (principal); Z96.641 Presence of right artificial hip joint
CPT/HCPCS: 72170

== ENCOUNTER 2023-11-04 13:42 | Outpatient (AMB) | payer OTHER, SELFPAY ==
--- NOTE | 2023-11-04 14:07 | MHC.OFFVIS ---
Intake Visit Reasons: After surgery concerns Intake Note: Petty is a 57 year old female who presents today for a follow up of her right hip. Hx of RT WESLY 02/27/22. She reports that about 3 months ago she started having a deep groin pain on the right side when lifting the leg. Allergies No Known Allergies Allergy (Verified 10/08/23 11:33) HPI HPI After surgery concerns: Details: Petty is a 57 year old female who presents today for a follow up of her right hip. Hx of RT WESLY 02/27/22. She reports that about 3 months ago she started having a anterior hip pain on the right side when lifting the leg. [facility] Medical History (Updated 10/08/23 @ 11:40 by Jossue Peterson) Asthma Chronic pain Hyperlipidemia Colorectal polyp detected on colonoscopy Normal Pap smear Alix's disease Interstitial cystitis Annual physical exam Fibromyalgia Surgical History History of total right hip replacement (02/27/22) Hx of unilateral salpingectomy Hx of section H/O colonoscopy Family History Father No problems noted. 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[place]) Housing: House Are you a primary intensive care unit nurse to a significant other at home: No Do you presently have visiting nurse or other home services: No Alcohol intake: current Alcohol intake frequency: holidays/special occasions only Patient Tobacco Use Status: Former Tobacco user Tobacco use type: Cigarette Years Smoked: 20 years e-Cigarette/Vaping Use: Never Used service: No Current occupational status: unemployed 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 Right WESLY in expected post operative position with no hardware complications or evidence of loosening Assessment & Plan Assessment & Plan (1) History of total right hip replacement: Onset Date: 02/27/22 Comment: Dr. Ubaldo Alvarado02/2022 Code(s): Z96.641 - Presence of right artificial hip joint Category: Surgical Plan: Hip flexor tendonitis Taught stretching exercises Recommend clip on pedals Orders: Orders XR pelvis 1-2V 11/04/23 M25.559 - Pain in unspecified hip Coding Level of Care Code Est Pt Level 3 (33711) Diagnoses History of total right hip replacement Z96.641
== END 2023-11-04 16:01 | disposition home or self-care (01) ==
PROVIDERS: PCP Internal Medicine; Visit Provider Orthopaedic Surgery
DX: Z47.89 Encounter for other orthopedic aftercare (principal); Z96.641 Presence of right artificial hip joint
CPT/HCPCS: 99213

== ENCOUNTER 2023-11-06 10:18 | Outpatient (AMB) | payer OTHER, SELFPAY ==
--- NOTE | 2023-11-06 10:22 | A.OFFVIS_ITS ---
Vital Signs 11/06/23 10:23 Height 5 ft 1 in Weight 163 lb 2.273 oz BMI 30.8 BP 102/62 Blood Pressure Location Lt brachial Position Sitting Pulse 82 Pulse Source Doppler Pulse Oximetry (%) 95 Oxygen Delivery Method Room Air Intake Visit Reasons: Xolair renewal Allergies No Known Allergies Allergy (Verified 10/08/23 11:33) HPI HPI Xolair renewal: Details: 57-year-old lady, former minimal smoker, quit 2009, followed for underlying asthma and environmental allergies. She has been on Xolair and albuterol MDI with excellent control of his symptoms. She denies recent exacerbations. Patient does complain of unrestful sleep, morning headaches, and daytime somnolence. [facility] Medical History (Updated 11/06/23 @ 10:40 by Ambrose Enriquez MD) Asthma Chronic pain Hyperlipidemia Colorectal polyp detected on colonoscopy Normal Pap smear Alix's disease Interstitial cystitis Annual physical exam Fibromyalgia Surgical History History of total right hip replacement (02/27/22) Hx of unilateral salpingectomy Hx of section H/O colonoscopy Family History Father No problems noted. 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[place]) Housing: House Are you a primary primary care nurse to a significant other at home: No Do you presently have visiting nurse or other home services: No Alcohol intake: current Alcohol intake frequency: holidays/special occasions only Patient Tobacco Use Status: Former Tobacco user Tobacco use type: Cigarette Years Smoked: 20 years e-Cigarette/Vaping Use: Never Used service: No Current occupational status: unemployed 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 Cognitive needs: No Hearing needs: No Vision needs: Yes Review of Systems Const Reports daytime sleepiness and Reports fatigue Card Denies dyspnea on exertion Resp Denies dyspnea on exertion and Denies wheezing Endo Reports fatigue Aller/Immun Denies wheezing Physical Exam Vital Signs: Last Vital Signs Pulse 82 11/06/23 10:23 BP 102/62 11/06/23 10:23 Pulse Ox 95 11/06/23 10:23 Oxygen Delivery Method Room Air 11/06/23 10:23 BMI result Body Mass Index 30.8 Const General: no acute distress and alert Nutritional Appearance: not obese Orientation/consciousness: Other orientation findings ( oriented) HEENT Head: Yes atraumatic Eyes General: appearance normal, both eyes and all related structures Sclerae: sclerae normal EOM: EOMs intact bilaterally Neck Neck: Yes supple Lymphatic: no lymphadenopathy noted Resp Effort & Inspection: normal respiratory effort and no use of accessory muscles Auscultation: clear to auscultation bilaterally Cardio Rate: regular rate Rhythm: regular rhythm Heart sounds: no gallops, no murmurs and no rubs Skin General skin exam: other ( warm) Extrem General: No clubbing, No cyanosis and No edema Assessment & Plan Assessment & Plan (1) Severe persistent allergic asthma: Code(s): J45.50 - Severe persistent asthma, uncomplicated Category: Medical Plan: Well controlled on Xolair and albuterol MDI. Continue current regimen. (2) Environmental allergies: Code(s): Z91.09 - Other allergy status, other than to drugs and biological substances Category: Medical Plan: Well controlled on Xolair. Continue current regimen. (3) ADELAIDA (obstructive sleep apnea): Code(s): G47.33 - Obstructive sleep apnea (adult) (pediatric) Category: Medical Plan: Unrestful sleep, daytime somnolence, morning headaches. [place] Sleepiness Scale score of 15. Will obtain home sleep study. Orders: Orders RT home sleep study Today G47.33 - Obstructive sleep apnea (adult) (pediatric) Referrals Infusion Center Notification J45.50 - Severe persistent asthma, uncomplicated Coding Level of Care Code Est Pt Level 4 (29886) Diagnoses Severe persistent allergic asthma J45.50 Environmental allergies Z91.09 ADELAIDA (obstructive sleep apnea) G47.33
[2023-11-06 10:23] VITALS: BP 102/62; PULSE 82; O2SAT 95; BMI 30.8
== END 2023-11-06 10:45 | disposition home or self-care (01) ==
PROVIDERS: PCP Internal Medicine; Visit Provider Internal Medicine Pulmonary Disease
DX: J45.50 Severe persistent asthma, uncomplicated (principal); Z91.09 Other allergy status, other than to drugs and biological substances; G47.33 Obstructive sleep apnea (adult) (pediatric)
CPT/HCPCS: 99214

== ENCOUNTER → 2023-11-06 10:18 | Outpatient (BNVA) | payer OTHER, SELFPAY | PROVIDERS: PCP Internal Medicine; Visit Provider Internal Medicine Pulmonary Disease ==

== ENCOUNTER → 2023-12-17 14:36 | Outpatient (REF) | payer OTHER, SELFPAY | LOC: HO.SL 14:36 | PROVIDERS: PCP Internal Medicine; Visit Provider Internal Medicine Pulmonary Disease | DX: G47.33 Obstructive sleep apnea (adult) (pediatric) (principal) | CPT/HCPCS: 95806 ==

== ENCOUNTER → 2023-12-18 14:45 | Outpatient (BNV) | payer OTHER, SELFPAY | PROVIDERS: PCP Internal Medicine; Visit Provider Internal Medicine | DX: R06.83 Snoring (principal); R40.0 Somnolence | CPT/HCPCS: 95806 ==

== ENCOUNTER 2024-02-06 08:55 | Outpatient (AMB) | payer OTHER, SELFPAY ==
[2024-02-06 08:59] VITALS: BP 116/67; PULSE 80; O2SAT 98; BMI 30.2
--- NOTE | 2024-02-06 08:59 | A.OFFVIS_ITS ---
Vital Signs 02/06/24 08:59 Height 5 ft 1 in Weight 159 lb 13.362 oz BMI 30.2 BP 116/67 Blood Pressure Location Lt brachial Position Sitting Pulse 80 Pulse Source Doppler Pulse Oximetry (%) 98 Oxygen Delivery Method Room Air Intake Visit Reasons: increased allergies, cough, wheeze Allergies No Known Allergies Allergy (Verified 02/06/24 09:04) HPI HPI increased allergies, cough, wheeze: Details: 58-year-old lady, former minimal smoker, quit 2009, followed for underlying asthma and environmental allergies. She has been on Xolair and albuterol MDI with baseline good control of his symptoms, until approximately 10 days prior when she started developed increased postnasal drip and cough productive initially of yellowish, and now dark sputum, she is also complaining of fatigue and myalgias. Patient did have her sleep study that showed no evidence of underlying obstructive sleep apnea. Of note, patient did get a new dog approximately 2 weeks prior. [facility] Medical History (Updated 02/06/24 @ 09:26 by Ambrose Enriquez MD) Asthma Chronic pain Hyperlipidemia Colorectal polyp detected on colonoscopy Normal Pap smear Alix's disease Interstitial cystitis Annual physical exam Fibromyalgia Surgical History History of total right hip replacement (02/27/22) Hx of unilateral salpingectomy Hx of section H/O colonoscopy Family History Father No problems noted. 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: House Are you a primary career coordinator to a significant other at home: No Do you presently have visiting nurse or other home services: No Alcohol intake: current Alcohol intake frequency: holidays/special occasions only Patient Tobacco Use Status: Former Tobacco user Tobacco use type: Cigarette Years Smoked: 20 years e-Cigarette/Vaping Use: Never Used service: No Current occupational status: unemployed 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 Cognitive needs: No Hearing needs: No Vision needs: Yes Review of Systems Const Reports fatigue and Reports malaise ENT Reports post nasal drip Resp Reports cough, Reports excessive phlegm production and Denies wheezing Endo Reports fatigue Aller/Immun Denies wheezing Physical Exam Vital Signs: Last Vital Signs Pulse 80 02/06/24 08:59 BP 116/67 02/06/24 08:59 Pulse Ox 98 02/06/24 08:59 Oxygen Delivery Method Room Air 02/06/24 08:59 BMI result Body Mass Index 30.2 Const General: no acute distress and alert Nutritional Appearance: not obese Orientation/consciousness: Other orientation findings ( oriented) HEENT Head: Yes atraumatic Eyes General: appearance normal, both eyes and all related structures Sclerae: sclerae normal EOM: EOMs intact bilaterally Neck Neck: Yes supple Lymphatic: no lymphadenopathy noted Resp Effort & Inspection: normal respiratory effort and no use of accessory muscles Auscultation: clear to auscultation bilaterally Cardio Rate: regular rate Rhythm: regular rhythm Heart sounds: no gallops, no murmurs and no rubs Skin General skin exam: other ( warm) Extrem General: No clubbing, No cyanosis and No edema Assessment & Plan Assessment & Plan (1) ADELAIDA (obstructive sleep apnea): Code(s): G47.33 - Obstructive sleep apnea (adult) (pediatric) Category: Medical Plan: Results of sleep study reviewed, no evidence of underlying obstructive sleep apnea. (2) Severe persistent allergic asthma: Code(s): J45.50 - Severe persistent asthma, uncomplicated Category: Medical Plan: Baseline well controlled on Xolair and albuterol MDI. With what appears to be seasonal exacerbation, will restart on Breo. Continue baseline regimen. (3) Cough: Code(s): R05.9 - Cough, unspecified Category: Medical Plan: Unclear etiology, but may have viral/allergic/asthma component. Will check viral panel. Start on azithromycin course. Ipratropium bromide for postnasal drip. (4) Environmental allergies: Code(s): Z91.09 - Other allergy status, other than to drugs and biological substances Category: Medical Plan: Baseline controlled on Xolair. Continue current regimen. Orders: Orders SARS-CoV2/FLU/RSV Today R05.9 - Cough, unspecified Medications: New fluticasone furoate-vilanterol 200-25 mcg/dose (Breo Ellipta) 1 inh inhalation DAILY 60 ea 6RF azithromycin For 250 mg dose pack: take 500 mg today (day 1), then 250 mg for 4 days (days 2-5) PO 6 tabs 0RF ipratropium bromide administer into each nostril 2 sprays intranasal TID-QID PRN 15 mL 0RF allergy symptoms Coding Level of Care Code Est Pt Level 4 (69018) Diagnoses ADELAIDA (obstructive sleep apnea) G47.33 Severe persistent allergic asthma J45.50 Cough R05.9 Environmental allergies Z91.09
== END 2024-02-06 09:16 | disposition home or self-care (01) ==
PROVIDERS: PCP Internal Medicine; Visit Provider Internal Medicine Pulmonary Disease
DX: G47.33 Obstructive sleep apnea (adult) (pediatric) (principal); J45.50 Severe persistent asthma, uncomplicated; R05.9 Cough, unspecified; Z91.09 Other allergy status, other than to drugs and biological substances
CPT/HCPCS: 99214

== ENCOUNTER 2024-02-06 08:55 | Outpatient (REF) | payer OTHER, SELFPAY ==
[2024-02-06 10:10] LABS: Influenza A PCR NEGATIVE (Negative); Influenza B PCR NEGATIVE (Negative); Resp Syncy Virus RNA Qual PCR NEGATIVE (Negative); SARS COV2 PCR INHOUSE NEGATIVE (Negative)
== END 2024-02-06 08:56 | disposition home or self-care (01) ==
LOC: HO.LNP 08:55
PROVIDERS: PCP Internal Medicine; Visit Provider Internal Medicine Pulmonary Disease
DX: R05.9 Cough, unspecified (principal); R50.9 Fever, unspecified; M79.10 Myalgia, unspecified site
CPT/HCPCS: 0241U

== ENCOUNTER 2024-02-18 13:05 | Outpatient (AMB) | payer OTHER, SELFPAY ==
[2024-02-18 13:06] VITALS: BP 108/72; PULSE 99; O2SAT 97; BMI 29.7
--- NOTE | 2024-02-18 13:06 | MHC.PC.OV ---
Vital Signs 02/18/24 13:06 Height 5 ft 1 in Weight 157 lb BMI 29.7 BP 108/72 Blood Pressure Location Lt brachial Position Sitting Pulse 99 Pulse Source Pulse Oximeter Pulse Oximetry (%) 97 Oxygen Delivery Method Room Air Intake Visit Reasons: Annual PE Intake Note: Pt is here today for PE. Allergies No Known Allergies Allergy (Verified 02/18/24 13:13) Medication List - Last Reconciled 02/18/24 by Colette Mazariegos MD albuterol sulfate 90 mcg/actuation 2 puffs inhalation Q6H PRN atorvastatin 20 mg PO BEDTIME duloxetine 60 mg PO DAILY fluticasone furoate-vilanterol 200-25 mcg/dose (Breo Ellipta) 1 inh inhalation DAILY ipratropium bromide 2 sprays intranasal TID-QID PRN meloxicam 15 mg PO DAILY PRN omalizumab (Xolair) 150 mg subcut Q4W 28 days omeprazole 40 mg PO .bid 90 days sodium,potassium,mag sulfates 17.5-3.13-1.6 gram (Suprep Bowel Prep Kit) DILUTE; drink 1/2 at 6-8 pm and half at 11 PM- 1AM tizanidine 2 mg PO TID Tobacco use date assessed: 02/18/24 Dental Screening Dental Screen Date: 02/18/24 Did you have a dental visit in the last 12 months?: Yes Did you have a dental problem in the last 6 months where you did not have access to dental care?: No Was dental information given to patient?: Patient has dentist HPI Annual PE HPI Details Pt presents for PE. Pt reports chronic dry cough and chest tightness for 1 month. Pt is established with director instrumentation was treated with Z-Davi and restarted Breo. Patient reports for allergies and follows up with analyst food and beverage for allergy shots and has been getting Xolair injections. She denies wheezing nocturnal shortness or breath fever chills but reports night sweats on and off. Patient denies exercise induced shortness of breath palpitations or chest pain FOR[facility]LY [facility] Medical History (Updated 02/18/24 @ 13:48 by Colette Mazariegos MD) Annual physical exam Asthma Chronic pain Hyperlipidemia Colorectal polyp detected on colonoscopy Normal Pap smear Alix's disease Interstitial cystitis Fibromyalgia Surgical History History of total right hip replacement (02/27/22) Hx of unilateral salpingectomy Hx of section H/O colonoscopy Family History Father No problems noted. 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[place]) Housing: House Are you a primary reproductive healthcare assistant to a significant other at home: No Do you presently have visiting nurse or other home services: No Alcohol intake: current Alcohol intake frequency: holidays/special occasions only Patient Tobacco Use Status: Former Tobacco user Tobacco use type: Cigarette Years Smoked: 20 years e-Cigarette/Vaping Use: Never Used service: No Current occupational status: unemployed 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 1. Little interest or pleasure in doing things: not at all 2. Feeling down, depressed, or hopeless: not at all 3. Trouble falling or staying asleep, or sleeping too much: not at all 4. Feeling tired or having little energy: nearly every day 5. Poor appetite or overeating: not at all 6. Feeling bad about yourself - or that you are a failure or have let yourself or your family down: not at all 7. Trouble concentrating on things, such as reading the newspaper or watching television: not at all 8. Moving or speaking so slowly that other people could have noticed. Or the opposite - being so fidgety or restless that you have been moving around a lot more than usual: not at all 9. Thoughts that you would be better off or of hurting yourself in some way: not at all Total score: 3 Depression Screening Interpretation: Negative Depression Screening Done: Yes 42395 - PHQ-9 Billing: Yes Source: Developed by Drs. Sanchez Dominguez, Karissa Neville, Bhavin Tobias and colleagues, with an educational thang from [employer]. Thrive Questionnaire Date Thrive assessed: 02/18/24 I am a: Patient What is your living situation today?: I have a steady place to live Within the past 12 months, did the food you bought not last and you didn't have the money to get more?: Never true Within the past 12 months, did you worry whether your food would run out before you got money to buy more?: Never true Do you have trouble paying for medicines?: No Do you have trouble getting transportation to medical appointments?: No Do you have trouble paying your heating and electricity bill?: No Do you have trouble taking care of your child, family member or friend?: No Do you have trouble with day-to-day activities such as bathing, preparing meals, shopping, managing finances, etc.?: No Are you currently unemployed and looking for a job?: No Are you interested in more education?: No Please select the resources that you would like help with: None Currently or been in a relationship where the following occur: No concerns reported THRIVE Score: 0 AUDIT C Alcohol Use Questionnaire (AUDIT-C) 1. How often do you have a drink containing alcohol?: 2-4 times a month 2. How many drinks containing alcohol do you have on a typical day when you are drinking?: 1 or 2 3. How often do you have six or more drinks on one occasion?: Never Total Score: 2 VICKIE-7 AMB Questionnaire VICKIE-7 Date VICKIE - 7 assessed: 02/18/24 Feeling nervous, anxious, or on edge: 0 = Not at all Not being able to stop or control worryin = Not at all Worrying too much about different things: 0 = Not at all Trouble relaxin = Not at all Being so restless that it is hard to sit still: 0 = Not at all Becoming easily annoyed or irritable: 0 = Not at all Feeling afraid as if something awful might happen: 0 = Not at all Total VICKIE-7 score (0-4 normal; 5-9 mild; 10-14 moderate; 15-21 severe): 0 Source: Developed by Drs. Sanchez Dominguez, Karissa Neville, Bhavin Tobias and colleagues, with an educational thang from [employer]. VICKIE-7 Assessment Billing VICKIE-7 Assessment Tool: VICKIE-7 Assessment 89739 Review of Systems Const All systems reviewed & are unremarkable except as noted in HPI and below Eyes Reports no additional complaints ENT Reports no additional complaints Card Reports no additional complaints Resp Reports no additional complaints GI Reports no additional complaints Reports no additional complaints Physical exam (Primary Care) Vital Signs: Last Vital Signs Pulse 99 02/18/24 13:06 BP 108/72 02/18/24 13:06 Pulse Ox 97 02/18/24 13:06 Oxygen Delivery Method Room Air 02/18/24 13:06 BMI result Body Mass Index 29.7 Tobacco/Smoking Status: Tobacco use Status Tobacco use date assessed 02/18/24 02/18/24 13:18 Patient Tobacco Use Status Former Tobacco user 02/18/24 13:08 Tobacco use type Cigarette 02/18/24 13:08 e-Cigarette/Vaping Use Never Used 02/18/24 13:08 PHQ-9: PHQ-9 Score PHQ-9: Total score 3 02/18/24 13:18 Depression Screening Interpretation: Negative Thrive Assessment: Date of Thrive Assessment Date Thrive assessed 02/18/24 02/18/24 13:18 Currently or been in a relationship where the following occur: No concerns reported Const General: no acute distress HENMT Head: Yes normal to inspection Ears: hearing grossly normal bilaterally General nose exam: Normal external nose present Face and sinus: Yes normal facial exam Mouth: Normal oral and palatal mucosa present Throat: Yes posterior oropharynx normal Eyes General: appearance normal, both eyes and all related structures Neck Neck: Yes no lymphadenopathy and Yes supple Resp Effort & Inspection: normal respiratory effort Auscultation: clear to auscultation bilaterally Cardio Rhythm: regular rhythm Heart sounds: S1 normal heart sound present and S2 normal heart sound present GI Inspection: Yes normal to inspection Palpation (GI): Soft to palpation Percussion: Yes normal to percussion Auscultation: normal bowel sounds Assessment and Plan Assessment & Plan (1) Annual physical exam: Code(s): Z00.00 - Encounter for general adult medical examination without abnormal findings Plan: Well-balanced diet regular physical activity, patient will return for fasting blood work. She is up-to-date with mammogram and Pap by industrial registered nurse (2) Hyperlipidemia: Code(s): E78.5 - Hyperlipidemia, unspecified Plan: Continue low-cholesterol diet (3) Asthma: Code(s): J45.909 - Unspecified asthma, uncomplicated Plan: Continue Breo and current treatment follow-up with director instrumentation and analyst food and beverage Orders: Orders Lipid Panel Today E78.5 - Hyperlipidemia, unspecified, J45.909 - Unspecified asthma, uncomplicated, Z00.00 - Encounter for general adult medical examination without abnormal findings TSH reflex Free T4 Today E78.5 - Hyperlipidemia, unspecified, J45.909 - Unspecified asthma, uncomplicated, Z00.00 - Encounter for general adult medical examination without abnormal findings UA w Microscopic Today E78.5 - Hyperlipidemia, unspecified, J45.909 - Unspecified asthma, uncomplicated, Z00.00 - Encounter for general adult medical examination without abnormal findings Hemoglobin A1c Today E78.5 - Hyperlipidemia, unspecified, J45.909 - Unspecified asthma, uncomplicated, Z00.00 - Encounter for general adult medical examination without abnormal findings Comprehensive [place]. Panel Fast Today E78.5 - Hyperlipidemia, unspecified, J45.909 - Unspecified asthma, uncomplicated, Z00.00 - Encounter for general adult medical examination without abnormal findings Complete Blood Count Auto Diff Today E78.5 - Hyperlipidemia, unspecified, J45.909 - Unspecified asthma, uncomplicated, Z00.00 - Encounter for general adult medical examination without abnormal findings IRON PROFILE Today E78.5 - Hyperlipidemia, unspecified, J45.909 - Unspecified asthma, uncomplicated, Z00.00 - Encounter for general adult medical examination without abnormal findings Coding Level of Care Code Est Pt Prev Care 40-64y(64866) Diagnoses Annual physical exam Z00.00 Hyperlipidemia E78.5 Asthma J45.909 Additional Codes VICKIE-7 Assessment Billing - VICKIE-7 Assessment Tool: VICKIE-7 Assessment 78507 ([id number])
== END 2024-02-18 15:38 | disposition home or self-care (01) ==
PROVIDERS: PCP Internal Medicine; Visit Provider Internal Medicine
DX: Z00.00 Encounter for general adult medical examination without abnormal findings (principal); E78.5 Hyperlipidemia, unspecified; J45.909 Unspecified asthma, uncomplicated

== ENCOUNTER → 2024-02-18 13:05 | Outpatient (BNVA) | payer OTHER, SELFPAY | PROVIDERS: PCP Internal Medicine; Visit Provider Internal Medicine | DX: Z00.00 Encounter for general adult medical examination without abnormal findings (principal); E78.5 Hyperlipidemia, unspecified; J45.909 Unspecified asthma, uncomplicated | CPT/HCPCS: 96127 ==

== ENCOUNTER → 2024-02-25 11:45 | Outpatient (BNV) | payer OTHER, SELFPAY | PROVIDERS: PCP Internal Medicine; Visit Provider Internal Medicine | DX: Z12.31 Encounter for screening mammogram for malignant neoplasm of breast (principal) | CPT/HCPCS: 77063; 77067 ==

== ENCOUNTER 2024-02-25 11:50 | Outpatient (REF) | payer OTHER, SELFPAY ==
--- NOTE | ~2024-02-25 | MM_ITS ---
EXAMINATION: MM SCREENING DIGITAL BREAST TOMOSYNTHESIS, BILATERAL CLINICAL INFORMATION: Screening. Asymptomatic. COMPARISON: Mammography: Comparison is made with relevant avialable priors. TECHNIQUE: Digital mammography is performed in craniocaudal and mediolateral oblique views along with computer-aided detection (CAD). Digital breast tomosynthesis is performed in implant-displaced craniocaudal and implant-displaced mediolateral oblique views along with computer-aided detection (CAD). FINDINGS: The breasts are heterogeneously dense, which may obscure small masses (ACR BI-RADS breast composition Category c). Bilateral retropectoral implants are stable appearing. There are no significant masses, abnormal calcifications, or other abnormalities. MM/MM tomosynthesis screen imp BI IMPRESSION: There are no significant changes from prior study. ASSESSMENT: BI-RADS BI-RADS 2 - Benign Findings RECOMMENDATION: Routine annual mammography screening. 1 year F/U This patient's information was entered into a reminder system with a target due date for their next mammogram. Electronically signed by: Coty Love DO 03/06/2024 12:35 PM EDT
== END 2024-02-25 11:51 | disposition home or self-care (01) ==
LOC: HO.MAMMO 11:50
PROVIDERS: PCP Internal Medicine; Visit Provider Internal Medicine
DX: Z12.31 Encounter for screening mammogram for malignant neoplasm of breast (principal)
CPT/HCPCS: 77063; 77067

== ENCOUNTER 2024-02-25 13:06 | Outpatient (AMB) | payer OTHER, SELFPAY ==
[2024-02-25 13:09] VITALS: BP 104/60; PULSE 84; O2SAT 98; BMI 29.8
--- NOTE | 2024-02-25 13:09 | MHC.OFFVIS ---
Vital Signs 02/25/24 13:09 Height 5 ft 1 in Weight 157 lb 10.088 oz BMI 29.8 BP 104/60 Blood Pressure Location Lt brachial Position Sitting Pulse 84 Pulse Source Doppler Pulse Oximetry (%) 98 Oxygen Delivery Method Room Air Intake Visit Reasons: Cough Allergies No Known Allergies Allergy (Verified 02/25/24 13:14) HPI HPI Cough: Details: 58-year-old lady, former minimal smoker, quit 2009, followed for underlying asthma and environmental allergies. She has been on Xolair and albuterol MDI with baseline good control of her symptoms, until she developed increased postnasal drip and cough productive of yellowish sputum. She was tested for RSV/COVID/influenza and results were negative. Patient also was treated with a course of azithromycin with no significant improvement. [facility] Medical History (Updated 02/18/24 @ 13:48 by Colette Mazariegos MD) Annual physical exam Asthma Chronic pain Hyperlipidemia Colorectal polyp detected on colonoscopy Normal Pap smear Alix's disease Interstitial cystitis Fibromyalgia Surgical History History of total right hip replacement (02/27/22) Hx of unilateral salpingectomy Hx of section H/O colonoscopy Family History Father No problems noted. 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[employer] [place] Housing: House Are you a primary vp care management to a significant other at home: No Do you presently have visiting nurse or other home services: No Alcohol intake: current Alcohol intake frequency: holidays/special occasions only Patient Tobacco Use Status: Former Tobacco user Tobacco use type: Cigarette Years Smoked: 20 years e-Cigarette/Vaping Use: Never Used service: No Current occupational status: unemployed 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 Cognitive needs: No Hearing needs: No Vision needs: Yes Review of Systems Resp Reports cough and Reports excessive phlegm production Physical Exam Vital Signs: Last Vital Signs Pulse 84 02/25/24 13:09 BP 104/60 02/25/24 13:09 Pulse Ox 98 02/25/24 13:09 Oxygen Delivery Method Room Air 02/25/24 13:09 BMI result Body Mass Index 29.8 Const General: no acute distress and alert Nutritional Appearance: not obese Orientation/consciousness: Other orientation findings ( oriented) HEENT Head: Yes atraumatic Eyes General: appearance normal, both eyes and all related structures Sclerae: sclerae normal EOM: EOMs intact bilaterally Neck Neck: Yes supple Lymphatic: no lymphadenopathy noted Resp Effort & Inspection: normal respiratory effort and no use of accessory muscles Auscultation: clear to auscultation bilaterally Cardio Rate: regular rate Rhythm: regular rhythm Heart sounds: no gallops, no murmurs and no rubs Skin General skin exam: other ( warm) Extrem General: No clubbing, No cyanosis and No edema Assessment & Plan Assessment & Plan (1) Asthma: Code(s): J45.909 - Unspecified asthma, uncomplicated Category: Medical Plan: Baseline controlled on Breo, albuterol MDI, and Xolair. Continue current regimen. (2) Environmental allergies: Code(s): Z91.09 - Other allergy status, other than to drugs and biological substances Category: Medical Plan: Well controlled on Xolair. Continue current regimen. (3) Cough: Code(s): R05.9 - Cough, unspecified Category: Medical Plan: No viral etiology elucidated, poor response to empiric azithromycin. Continues with cough productive of yellowish sputum. Will obtain sputum culture. Orders: Orders Sputum Cult + Gram stain Today R05.9 - Cough, unspecified Coding Level of Care Code Est Pt Level 4 (78759) Diagnoses Asthma J45.909 Environmental allergies Z91.09 Cough R05.9
== END 2024-02-25 13:28 | disposition home or self-care (01) ==
PROVIDERS: PCP Internal Medicine; Visit Provider Internal Medicine Pulmonary Disease
DX: J45.909 Unspecified asthma, uncomplicated (principal); Z91.09 Other allergy status, other than to drugs and biological substances; R05.9 Cough, unspecified
CPT/HCPCS: 99214

== ENCOUNTER 2024-02-26 15:41 | Outpatient (REF) | payer OTHER, SELFPAY | END 2024-02-26 15:42 | disposition home or self-care (01) | LOC: HO.LNP 15:41 | PROVIDERS: Visit Provider Internal Medicine Pulmonary Disease | DX: R05.9 Cough, unspecified (principal) | CPT/HCPCS: 87070; 87205 ==

== ENCOUNTER 2024-03-28 10:12 | Outpatient (REF) | payer OTHER, SELFPAY ==
[2024-03-28 10:47] LABS: MANUAL DIFF FLAG NO
[2024-03-28 11:39] LABS: Estimated Average Glucose 108 mg/dL; Hemoglobin A1C 115.3037 umol/L; Hemoglobin A1c % 5.4 % (<6.0); Total Hemoglobin (HGBA1C) 3201.0189 umol/L
[2024-03-28 11:44] LABS: Appearance Urine Clear; Color Urine Yellow; Glucose Urine UA Negative (Negative); Leukocyte Esterase Urine Negative (Negative); Nitrite Urine Negative (Negative); Specific Gravity - Urine 1.015 (1.005-1.025); Urine Blood Negative (Negative); Urine Ketones Negative (Negative); Urine Protein Negative (Neg-Trace)
[2024-03-28 11:46] LABS: Basophils Percent Auto 0.4 % (0-2); Eosinophils Absolute Auto 0.1 X10*3/uL (0.0-0.4); Eosinophils Percent Auto 1.9 % (0-4); Hematocrit 38.1 % (37.0-47.0); Hemoglobin 13.1 g/dl (12.0-16.0); Imm Gran Abs Auto 0.02 X10*3/uL (0.00-0.03); Imm Gran Pct Auto 0.3 % (0.0-0.4); Lymphocytes Absolute Auto 1.3 X10*3/uL (1.2-4.9); Lymphocytes Percent Auto 19.5 % (20-40); Mean Corpuscular HGB Conc 34.4 g/dl (31.0-35.0); Mean Corpuscular Hemoglobin 31.3 pg (27.0-33.0); Mean Corpuscular Volume 91.1 fL (80.0-98.0); Monocytes Absolute Auto 0.5 X10*3/uL (0.1-1.2); Monocytes Percent Auto 6.8 % (2-11); Neutrophils Absolute Auto 4.8 x10*3/uL (2.0-8.3); Neutrophils Percent Auto 71.1 % (45-73); Platelet Count 266 X10*3/uL (160-400); Red Blood Count 4.18 X10*6/uL (4.20-5.50); Red Cell Distribution Width 13.9 % (11.0-16.0); White Blood Count 6.8 X10*3/uL (4.8-10.8)
[2024-03-28 11:56] LABS: Alanine Aminotransferase 36 U/L (0-31); Albumin Level 4.1 g/dL (3.5-5.0); Alkaline Phosphatase 67 U/L (39-117); Anion Gap 12 (12-20); Aspartate Amino Transferase 30 U/L (5-31); Bilirubin Total 1.4 mg/dL (0.0-1.0); Blood Urea Nitrogen 12 mg/dL (9-16); Calcium 9.3 mg/dL (8.4-10.2); Carbon Dioxide 24 mmol/L (22-29); Chloride 107 mmol/L (96-108); Cholesterol 140 mg/dL (<200); Estimated Glomerular Filt Rate > 60; Glucose Fasting 100 mg/dL (60-99); HDL Cholesterol 62 mg/dL (>40); Iron 168 mcg/dL (30-160); LDL Cholesterol Calculated 55 mg/dL (<100); Percent Iron Saturation 55 % (15-50); Potassium 4.2 mmol/L (3.3-5.1); Sodium 139 mmol/L (135-145); Total Iron Binding Capacity 305 mcg/dL (228-428); Total Protein 6.9 g/dL (6.5-8.0); Triglycerides 118 mg/dL (<150); Unsaturated Iron Binding 137 ug/dL
[2024-03-28 12:01] LABS: Bacteria Urine Trace (None Seen); Hyaline Casts Urine 0-2 /LPF (0-2); WBC Urine 0-5 /HPF (0-5)
[2024-03-28 12:08] LABS: RBC Urine 0-2 /HPF (0-2)
[2024-03-28 12:15] LABS: TSH reflex Free T4 1.75 uIU/mL (0.32-4.0)
== END 2024-03-28 10:13 | disposition home or self-care (01) ==
LOC: HO.LAB 10:12
PROVIDERS: PCP Internal Medicine; Visit Provider Internal Medicine
DX: Z00.00 Encounter for general adult medical examination without abnormal findings (principal); E78.5 Hyperlipidemia, unspecified; J45.909 Unspecified asthma, uncomplicated; Z13.1 Encounter for screening for diabetes mellitus
CPT/HCPCS: 36415; 80053; 80061; 81001; 83036; 83540; 84443; 85025

== ENCOUNTER 2024-08-11 11:12 | Outpatient (AMB) | payer OTHER, SELFPAY ==
[2024-08-11 11:16] VITALS: BP 100/60; PULSE 73; O2SAT 98; BMI 29.1
--- NOTE | 2024-08-11 11:16 | MHC.OFFVIS ---
Vital Signs 08/11/24 11:16 Height 5 ft 1 in Weight 154 lb BMI 29.1 BP 100/60 Blood Pressure Location Lt brachial Position Sitting Pulse 73 Pulse Source Doppler Pulse Oximetry (%) 98 Oxygen Delivery Method Room Air Intake Visit Reasons: Asthma Allergies No Known Allergies Allergy (Verified 08/11/24 11:29) HPI HPI Asthma: Details: 58-year-old lady, [id number], quit 2009, followed for underlying asthma and environmental allergies. She has been on Xolair, Breo, and albuterol MDI with good baseline control of her symptoms. She did have significant cough with initial poor response to antibiotics and glucocorticoids, now improved significantly. She denies recent acute exacerbations. [facility] Medical History (Updated 08/11/24 @ 11:41 by Ambrose Enriquez MD) Annual physical exam Asthma Chronic pain Hyperlipidemia Colorectal polyp detected on colonoscopy Normal Pap smear Alix's disease Interstitial cystitis Fibromyalgia Surgical History History of total right hip replacement (02/27/22) Hx of unilateral salpingectomy Hx of section H/O colonoscopy Family History Father No problems noted. 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[place]) Housing: House Are you a primary daycare worker to a significant other at home: No Do you presently have visiting nurse or other home services: No Alcohol intake: current Alcohol intake frequency: holidays/special occasions only Patient Tobacco Use Status: Former Tobacco user Tobacco use type: Cigarette Years Smoked: 20 years e-Cigarette/Vaping Use: Never Used service: No Current occupational status: unemployed 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 Cognitive needs: No Hearing needs: No Vision needs: Yes Review of Systems Card Denies dyspnea on exertion Resp Reports cough, Denies hemoptysis, Denies excessive phlegm production, Denies dyspnea on exertion and Denies wheezing Aller/Immun Denies wheezing Physical Exam Vital Signs: Last Vital Signs Pulse 73 03/11/25 11:16 BP 100/60 08/11/24 11:16 Pulse Ox 98 08/11/24 11:16 Oxygen Delivery Method Room Air 08/11/24 11:16 BMI result Body Mass Index 29.1 Const General: no acute distress and alert Nutritional Appearance: not obese Orientation/consciousness: Other orientation findings ( oriented) HEENT Head: Yes atraumatic Eyes General: appearance normal, both eyes and all related structures Sclerae: sclerae normal EOM: EOMs intact bilaterally Neck Neck: Yes supple Lymphatic: no lymphadenopathy noted Resp Effort & Inspection: normal respiratory effort and no use of accessory muscles Auscultation: clear to auscultation bilaterally Cardio Rate: regular rate Rhythm: regular rhythm Heart sounds: no gallops, no murmurs and no rubs Skin General skin exam: other ( warm) Extrem General: No clubbing, No cyanosis and No edema Assessment & Plan Assessment & Plan (1) Severe persistent allergic asthma: Code(s): J45.50 - Severe persistent asthma, uncomplicated Category: Medical Plan: Well controlled on current regimen of Xolair, Breo, and albuterol MDI. Continue current regimen. (2) Environmental allergies: Code(s): Z91.09 - Other allergy status, other than to drugs and biological substances Category: Medical Plan: Well controlled on Xolair. Continue current regimen. (3) Personal history of nicotine dependence: Code(s): Z87.891 - Personal history of nicotine dependence Category: Medical Plan: Patient does amend her smoking history to be a total of 26 pack-years of smoking. Will request lung cancer screening CT chest. Orders: Orders CT lung screening Today Z87.891 - Personal history of nicotine dependence Coding Level of Care Code Est Pt Level 4 (68007) Complex EM visit Add On G2211 Diagnoses Severe persistent allergic asthma J45.50 Environmental allergies Z91.09 Personal history of nicotine dependence Z87.891
== END 2024-08-11 11:41 | disposition home or self-care (01) ==
LOC: HO.HPS 11:13
PROVIDERS: PCP Internal Medicine; Visit Provider Internal Medicine Pulmonary Disease
DX: J45.50 Severe persistent asthma, uncomplicated (principal); Z91.09 Other allergy status, other than to drugs and biological substances; Z87.891 Personal history of nicotine dependence
CPT/HCPCS: 99214

== ENCOUNTER 2024-08-24 09:06 | Outpatient (REF) | payer BC, SELFPAY ==
--- NOTE | ~2024-08-24 | XR_ITS ---
CLINICAL HISTORY: M25.559 - Pain in unspecified hip Two views of the pelvis. COMPARISON: None FINDINGS: Pelvic ring appears maintained. Pelvic phleboliths present. Sacrum appears intact. Visualized portions of the lower lumbar spine appear intact. Anatomic alignment of right total hip arthroplasty. Visualized portions of the proximal right femur appear intact. Degenerative changes of the left hip with joint space narrowing and osteophytes along the femoral head and acetabulum. IMPRESSION: 1. No radiographic evidence of acute injury to the pelvis. This document has been electronically signed by: Lawrence Sams MD on 08/25/2024 14:28:30
--- NOTE | ~2024-08-24 | XR_ITS ---
CLINICAL HISTORY: M25.561 - Pain in right knee Two views of the right knee. AP views of the bilateral knees. Weight bearing views were obtained. COMPARISON: None FINDINGS: Right knee: No suprapatellar joint effusion. Patellofemoral joint space narrowing. Osteophytes present along the patella. Tibial spine spurring. Visualized portions of the distal right femur, patella, and proximal tibia and fibula appear intact. Bulla present. Limited AP view of the left knee: Joint spaces are maintained. Tibial spine spurring. Visualized portions of the distal left femur and proximal tibia and fibula appear intact. IMPRESSION: 1. No radiographic evidence of acute injury to the right knee. 2. Moderate right patellofemoral compartment degenerative changes. This document has been electronically signed by: Lawrence Sams MD on 08/25/2024 15:06:13
== END 2024-08-24 09:07 | disposition home or self-care (01) ==
LOC: HO.HOSX 09:06
PROVIDERS: Visit Provider Orthopaedic Surgery
DX: M25.561 Pain in right knee (principal); M25.559 Pain in unspecified hip; M16.12 Unilateral primary osteoarthritis, left hip
CPT/HCPCS: 72170; 73562

== ENCOUNTER 2024-08-24 12:38 | Outpatient (AMB) | payer BC, SELFPAY ==
--- NOTE | 2024-08-24 12:40 | A.OFFVIS_ITS ---
Vital Signs 08/24/24 12:51 Height 5 ft 1 in Weight 154 lb BMI 29.1 Intake Visit Reasons: OV- RT knee OA f/u DOI: 07/01/24 Intake Note: Petty is a 58 year old female who presents today for a follow up of her right knee OA. At her last visit we discussed home exercises, continue meloxicam and activity as tolerated. Patient report she works out daily but she has not been working on knee exercises. She expresses her knee has been buckling more often in the past week and a half. Expresses feeling weakness and difficulty with ambulation. Allergies No Known Allergies Allergy (Verified 08/24/24 12:52) HPI HPI OV- RT knee OA f/u DOI: 07/01/24: Details: Petty is a 58 year old female who presents today for a follow up of her right knee OA. At her last visit we discussed home exercises, continue meloxicam and activity as tolerated. Patient report she works out daily but she has not been working on knee exercises. She expresses her knee has been buckling more often in the past week and a half. Expresses feeling weakness and difficulty with ambulation. Her primary complaint is left groin pain that feels similar to how her right felt prior to right [facility] Medical History (Updated 08/24/24 @ 14:01 by Franklyn Conner MD) Annual physical exam Asthma Chronic pain Hyperlipidemia Colorectal polyp detected on colonoscopy Normal Pap smear Alix's disease Interstitial cystitis Fibromyalgia Surgical History History of total right hip replacement (02/27/22) Hx of unilateral salpingectomy Hx of section H/O colonoscopy Family History Father No problems noted. 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[place]) Housing: House Are you a primary healthcare project manager to a significant other at home: No Do you presently have visiting nurse or other home services: No Alcohol intake: current Alcohol intake frequency: holidays/special occasions only Patient Tobacco Use Status: Former Tobacco user Tobacco use type: Cigarette Years Smoked: 20 years e-Cigarette/Vaping Use: Never Used service: No Current occupational status: unemployed 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 She is taking meloxicam and this seems to serve her well. I discussed that her radiographs are largely benign and that there is no surgical intervention at this point and this seemed to alleviate some of her anxiety. She can return to see me if her pain worsens and at this time I would recommend activity modification and NSAIDs. Should it worsen drastically we may consider injections but hopefully not. I discussed this with her. She expressed understanding. Orders: Orders XR knee RT 3V Today M25.561 - Pain in right knee XR pelvis 1-2V Today M25.559 - Pain in unspecified hip Coding Level of Care Code Est Pt Level 3 (58844) Diagnoses Arthritis of left hip M16.12
[2024-08-24 12:51] VITALS: BMI 29.1
== END 2024-08-24 13:33 | disposition home or self-care (01) ==
LOC: HO.HOS 12:39
PROVIDERS: PCP Internal Medicine; Visit Provider Orthopaedic Surgery
DX: M16.12 Unilateral primary osteoarthritis, left hip (principal)
CPT/HCPCS: 99213

== ENCOUNTER → 2024-08-24 13:02 | Outpatient (BNV) | payer BC, SELFPAY | PROVIDERS: Visit Provider Radiology Diagnostic Radiology | DX: M25.561 Pain in right knee (principal); M25.559 Pain in unspecified hip | CPT/HCPCS: 72170; 73562 ==

== ENCOUNTER 2024-11-17 09:18 | Day surgery (SDC) | payer BC, SELFPAY ==
--- OUTSIDE RECORDS SUMMARY | 2024-11-10 18:22 | XMS_ITS | Continuity of Care Document ---
Author Organization [facility] Address [address] [place] [address] Phone Care Team Providers Care Job Specification Writer Name Role Phone Tete Morgan MD Unavailable Unavailable Allergies, Adverse Reactions, Alerts Substance Reaction Status Criticality No Known Allergies Active No Inform ation Medications Medication Instructions Dosage Effective Dates (start - stop) Status Comments Dymista 137 mcg-50 mcg/spray nasal spray spray 1 by Nasal route 2 times every every day - Active BIN: [id number] GROUP: [id number] STATIC ID: [id number] EpiPen 2-Davi 0.3 mg/0.3 mL (1:1,000) injection,auto-inj daniela inject 0.3 milliliter by intramuscular route once as needed for anaphylaxis 0.3 MG - Active Pataday 0.2 % eye drops instill 1 drop by ophthalmic route every day into affected eye(s) - Active fluticasone 50 mcg/actuation nasal spray,suspension spray 1 spray by intranasal route every day in each nostril prn congestion - Active OTEZLA (unknown strength) take 1 tablet by oral route 2 times every day approximately 12 hours apart Not Available - Active MULTIVITAMINS (unknown strength) take 1 tablet by oral route every day with food Not Available - Active vitamin C, D, Turmeric BENADRYL ALLERGY (unknown strength) Not Available - Active PROBIOTIC (unknown strength) Not Available - Active ALLER-ARASELI (unknown strength) Not Available - Active Problems Condition Type Effective Dates (start - stop) Clini edison Status Comments No Known Problems Procedures Procedure Date Prof Svcs For Allergen Immun, Multi Antigen Prep,Specify # Of Doses 017 Prof Svcs For Allergen Immun, Multi Antigen Prep,Specify # Of Doses 016 Consult, Level III / Office Diagnostic Nasal Endoscopy Prof Svcs For Allergen Immun, Multi Antigen Prep,Specify # Of Doses 016 Prof Svcs For Allergen Immun, Multi Antigen Prep,Specify # Of Doses 016 Prof Svcs For Allergen Immun, Multi Antigen Prep,Specify # Of Doses 016 Prof Svcs For Allergen Immun, Multi Antigen Prep,Specify # Of Doses 016 Prof Svcs For Allergen Immun, Multi Antigen Prep,Specify # Of Doses 016 Prof Svcs For Allergen Immun, Multi Antigen Prep,Specify # Of Doses 016 Prof Svcs For Allergen Immun, Multi Antigen Prep,Specify # Of Doses 016 Prof Svcs For Allergen Immun, Multi Antigen Prep,Specify # Of Doses 016 OV, Estab Pt, Level III Prof Svcs For Allergen Immun, Multi Antigen Prep,Specify # Of Doses 016 Prof Svcs For Allergen Immun, Multi Antigen Prep,Specify # Of Doses 016 Prof Svcs For Allergen Immun, Multi Antigen Prep,Specify # Of Doses 016 Prof Svcs For Allergen Immun, Multi Antigen Prep,Specify # Of Doses 016 Prof Svcs For Allergen Immun, Multi Antigen Prep,Specify # Of Doses 016 Prof Svcs For Allergen Immun, Multi Antigen Prep,Specify # Of Doses 016 Prof Svcs For Allergen Immun, Multi Antigen Prep,Specify # Of Doses 016 Prof Svcs For Allergen Immun, Multi Antigen Prep,Specify # Of Doses 016 Prof Svcs For Allergen Immun, Multi Antigen Prep,Specify # Of Doses 016 Prof Svcs For Allergen Immun, Multi Antigen Prep,Specify # Of Doses 016 Prof Svcs For Allergen Immun, Multi Antigen Prep,Specify # Of Doses 016 Prof Svcs For Allergen Immun, Multi Antigen Prep,Specify # Of Doses 016 Prof Svcs For Allergen Immun, Multi Antigen Prep,Specify # Of Doses - 015 OV, Estab Pt, Level III Prof Svcs For Allergen Immun, Multi Antigen Prep,Specify # Of Doses - 015 Prof Svcs For Allergen Immun, Multi Antigen Prep,Specify # Of Doses 015 Prof Svcs For Allergen Immun, Multi Antigen Prep,Specify # Of Doses 015 Prof Svcs For Allergen Immun, Multi Antigen Prep,Specify # Of Doses - 015 Prof Svcs For Allergen Immun, Multi Antigen Prep,Specify # Of Doses 015 Prof Svcs For Allergen Immun, Multi Antigen Prep,Specify # Of Doses 015 Prof Svcs For Allergen Immun, Multi Antigen Prep,Specify # Of Doses 015 OV, New Pt, Level III Intracutaneous Tests W/ Allergen Ex Percut Allergy Skin Tests Advance Directives Directive Yes / No Effective Date File Name No Information Encounters Encounter Description Practice Location Reason(s) For Visit Diagnoses Date Provider Providers Copied on Encounter [facility], [address], [place], [place], [id number], [place] tel:[phone] [facility] No Information Feb- 4 Eddie Epstein. [address], [place], [place], [id number] , [place]. tel: [phone] [facility], [address], [place], [place], [id number], [place] tel:[phone] [facility] Allergic rhinitis due to pollenAllergic rhinitis due to animal (cat) (dog) hair and danderOther allergic rhinitis 7 Eddie Epstein. [address], [place], [place], [id number] , [place]. tel: [phone] Referring Provider: Mitchell Bojorquez, [address] [place] [address], [address]. tel:[phone] [facility], [address], [place], [place], [id number], [place] tel:[phone] [facility] Allergic rhinitis due to pollenAllergic rhinitis due to animal (cat) (dog) hair and danderOther allergic rhinitis 6 Eddie Epstein. [address], [place], [place], [id number] , [place]. tel:[phone] Referring Provider: Mitchell Bojorquez, [address] [place] [address], [place], [address]. tel:[phone] Consult, Level III / Office [facility], [address], [place], [place], [id number], [place] tel:[phone] [facility] chronic sinus problems (chief complaint) Other allergic rhinitisChronic rhinitis 6 Mary Ann Bravo. [address], [place], [place], [id number] , [place]. tel:[phone] Referring Provider: Mitchell Bojorquez, [facility], [place], [address]. tel:[phone] [facility], [address], [place], [place], [id number], [place] tel:[phone] [facility] Allergic rhinitis due to pollenAllergic rhinitis due to animal (cat) (dog) hair and danderOther allergic rhinitis 5 6 Eddie Epstein. [address], [place], [place], [id number] , [place]. tel: [phone] [facility], [address], [place], [id number], [place] tel:[phone] [facility] Allergic rhinitis due to pollenAllergic rhinitis due to animal (cat) (dog) hair and danderOther allergic rhinitis 3 6 Eddie Epstein. [address], [place], [place], [address] , [place]. tel: [phone] [facility], [address] [place] [address], [id number], [place] tel:[phone] [facility] Allergic rhinitis due to pollenAllergic rhinitis due to animal (cat) (dog) hair and danderOther allergic rhinitis 0 6 Eddie Epstein. [address], [place], [place], [id number] , [place]. tel: [phone] [facility], [address] [place] [address], [id number], [place] tel:[phone] [facility] Allergic rhinitis due to pollenAllergic rhinitis due to animal (cat) (dog) hair and danderOther allergic rhinitis 0 6 Eddie Epstein. [address], [place], [place], [address] , [place]. tel: [phone] [facility], [address] [place] [address], [id number], [place] tel:[phone] [facility] Allergic rhinitis due to pollenAllergic rhinitis due to animal (cat) (dog) hair and danderOther allergic rhinitis 2 6 Eddie Epstein. [address], [place], [place], [id number] , [place]. tel: [phone] [facility], [address], [place], [place], [id number], [place] tel:[phone] [facility] Allergic rhinitis due to pollenAllergic rhinitis due to animal (cat) (dog) hair and danderOther allergic rhinitis 6 Eddie Epstein. [address], [place], [place], [address] , [place]. tel: [phone] [facility], [address], [place], [place], [id number], [place] tel:[phone] [facility] Allergic rhinitis due to pollenAllergic rhinitis due to animal (cat) (dog) hair and danderOther allergic rhinitis 6 Eddie Epstein. [address], [place], [place], [address] , [place]. tel: [phone] [facility], [address], [place], [place], [id number], [place] tel:[phone] [facility] Allergic rhinitis due to pollenAllergic rhinitis due to animal (cat) (dog) hair and danderOther allergic rhinitis 6 Eddie Epstein. [address], [place], [place], [address] , [place]. tel: [phone] OV, Estab Pt, Level III [facility], [address], [place], [place], [id number], [place] tel:[phone] [facility] rhinitis, allergic (chief complaint) Allergic rhinitis due to pollenOther allergic rhinitis 6 Eddie Epstein. [address], [place], [place], [address] , [place]. tel: [phone] [facility], [address], [place], [place], [address], [place] tel:[phone] [facility] No Information 6 Eddie Epstein. [address], [place], [place], [address] , [place]. tel: [phone] [facility], [address], [place], [place], [address], [place] tel:[phone] [facility] No Information 6 Eddie Epstein. [address], [place], [place], [address] , [place]. tel: [phone] [facility], [address], [place], [place], [address], [place] tel:[phone] [facility] No Information 6 Eddie Epstein. [address], [place], [place], [address] , [place]. tel: [phone] [facility], [address], [place], [place], [address], [place] tel:[phone] [facility] No Information 6 Eddie Epstein. [address], [place], [place], [address] , [place]. tel: [phone] [facility], [address], [place], [place], [address], [place] tel:[phone] [facility] No Information 6 Eddie Epstein. [address], [place], [place], [address] , [place]. tel: [phone] Referring Provider: Tete Morgan MD, [address], [place], [address] . tel:[phone] [facility], [address], [place], [place], [address], [place] tel:[phone] [facility] No Information 6 Eddie Epstein. [address], [place], [place], [address] , [place]. tel: [phone] [facility], [address], [place], [place], [address], [place] tel:[phone] [facility] No Information 6 Eddie Epstein. [address], [place], [place], [address] , [place]. tel: [phone] [facility], [address], [place], [place], [address], [place] tel:[phone] [facility] No Information 6 Eddie Epstein. [address], [place], [place], [address] , [place]. tel: [phone] [facility], [address], [place], [place], [address], [place] tel:[phone] [facility] No Information 6 Eddie Epstein. [address], [place], [place], [address] , [place]. tel: [phone] [facility], [address], [place], [place], [address], [place] tel:[phone] [facility] No Information 6 Eddie Epstein. [address], [place], [place], [address] , [place]. tel: [phone] [facility], [address], [place], [place], [address], [place] tel:[phone] [facility] No Information 6 Eddie Epstein. [address], [place], [place], [address] , [place]. tel: [phone] [facility], [address], [place], [place], [address], [place] tel:[phone] [facility] No Information 6 Eddie Epstein. [address], [place], [place], [address] , [place]. tel: [phone] [facility], [address], [place], [place], [address], [place] tel:[phone] [facility] No Information 5 Eddie Epstein. [address], [place], [place], [address] , [place]. tel: [phone] OV, Estab Pt, Level III [facility], [address], [place], [place], [address], [place] tel:[phone] [facility] rhinitis, allergic (chief complaint) Allergic rhinitis due to pollenOther allergic rhinitis 5 Eddie Epstein. [address], [place], [place], [address] , [place]. tel: [phone] [facility], [address], [place], [place], [address], [place] tel:[phone] [facility] No Information 5 Eddie Epstein. [address], [place], [place], [address] , [place]. tel: [phone] [facility], [address], [place], [place], [address], [place] tel:[phone] [facility] No Information 5 Eddie Epstein. [address], [place], [place], [address] , [place]. tel: [phone] [facility], [address], [place], [address], [place] tel:[phone] [facility] No Information 0- 5 Eddie Epstein. [address], [place], [place], [address] , [place]. tel: [phone] [facility] [address], [place], [place], [address], [place] tel:[phone] [facility] No Information 3 5 Eddie Epstein. [address], [place], [place], [address] , [place]. tel: [phone] [facility] [address], [place], [place], [address], [place] tel:[phone] [facility] No Information 5 Eddie Epstein. [address], [place], [place], [address] , [place]. tel: [phone] [facility] [address], [place], [place], [address], [place] tel:[phone] [facility] No Information 5 Eddie Epstein. [address], [place], [place], [address] , [place]. tel: [phone] [facility] [address], [place], [place], [address], [place] tel:[phone] [facility] Allergic rhinitis due to pollenAllergic rhinitis due to animal (cat) (dog) hair and danderOther allergic rhinitis 5 Eddie Epstein. [address], [place], [place], [address] , [place]. tel: [phone] OV, New Pt, Level III [facility], [address], [place], [place], [address], tel:[phone] [facility] rhinitis, allergic (chief complaint) Allergic Rhinitis NosAsthma Eddie Epstein. [address], [place], [place], [address] , . tel:[phone] Family History Family Member Type Diagnosis Age At Onset Father Problem (finding) raised blood lipids Mother Problem (finding) osteoarthritis Mother Problem (finding) depression Son Problem (finding) Eczema Mother Problem (finding) osteoporosis Father Problem (finding) osteoarthritis Mother Problem (finding) diabetes melli tus in first degree relative Brother Problem (finding) depression Family H /O Problem (finding) Diabetes mellitus Father Problem (finding) Allergies Mother Problem (finding) hypertension Family H /O Problem (finding) Liver disease Mother Problem (finding) diabetes melli tus in first degree relative Mother Problem (finding) depression Family H /O Problem (finding) depression Father Problem (finding) osteoarthritis Family H /O Problem (finding) Hearing loss Brother Problem (finding) osteoarthritis Family H /O Problem (finding) osteoporosis Payers Payer name Insurance type Covered green party ID Authoriza tion(s) [facility] PPO PAR CI [id number] Social History Type Description Quantity Date Captured Comments Sex Female Smoking Status No Information Chief Complaint And Reason For Visit No Information Reason For Referral Reason For Referral No Information History Of Present Illness Encounter Date Complaint History Of Sushant key Illness chronic sinus problems The patie nt presents with symptoms that began 2 years ago. The sinus complaints are continual. The sinus symptoms have not changed. Today the patient complains of facial pain, nasal congestion and postnasal drainage. Associated symptoms include facial pain, fatigue, headache, nasal congestion and postnasal drainage. Pertinent negatives include cough, fever and hoarseness. Comments: a few infections a year -- + psoriatic arthritis --+ ocular symptoms blurry and tired sx rhinitis, allergic The patient p resents with itchy ears, itchy eyes, itchy throat, post nasal drainage and sneezing that began 40 years ago. Symptoms are intermittent, moderate and unchanged. The symptoms are felt to be related to fall season, spring season and summer season. The allergic symptoms are worsened by allergens. Symptoms are improved with allergy meds: diphenhydramine with fair relief and desensitization with good relief. The patient is also experiencing nasal congestion. The patient denies cough. 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 rhinitis, allergic The patient p resents with itchy ears, itchy eyes, itchy throat, post nasal drainage and sneezing that began 40 years ago. Symptoms are intermittent, moderate and unchanged. The symptoms are felt to be related to fall season, spring season and summer season. The allergic symptoms are worsened by allergens. Symptoms are improved with allergy meds: diphenhydramine with fair relief. The patient is also experiencing cough and nasal congestion. The patient denies dizziness. Additional information: She is having local swelling every time.at her shot site. The last time she also had swelling of her. rhinitis, allergic (comments) ri ght eye. She did not have any swelling of her throat, coughing, or dizziness. She took antihistamines and it resolved. rhinitis, allergic The patient p resents with itchy ears, itchy eyes, itchy throat, post nasal drainage and sneezing that began 40 years ago. Symptoms are intermittent and moderate. The symptoms are felt to be related to fall season, spring season and summer season. The allergic symptoms are worsened by allergens. Symptoms are improved with allergy meds: diphenhydramine with fair relief. The patient is also experiencing cough and nasal congestion. The patient denies dizziness. Functional Status Date Functional Assessmen t No Information Instructions Date Instruction Additional Infor mation No Information Assessments Type Assessment Date No Information Patient Care Teams Name Effective Dates (start - stop) Status Members No Information
[2024-11-13 16:12] VITALS: BMI 29.1
--- NOTE | 2024-11-16 13:25 | HO.ANESPROP2 ---
Documented by User: Faina Murillo NP 11/16/24 13:25 HPI - Anesthesia Eval Consult details Narrative: 58yo F for ?Upper Endoscopy and Colonoscopy PMFSH Active Problems Active Problems: All Active Problems Arthritis of left hip (Acute) Pulmonary nodules (Acute) Personal history of nicotine dependence (Acute) Plantar fasciitis (Acute) Annual physical exam (Acute) Severe persistent allergic asthma (Acute) Ganglion cyst of volar aspect of right wrist (Acute) De Quervain's tenosynovitis, right (Acute) Genitourinary syndrome of menopause (Acute) Carpal tunnel syndrome of left wrist (Acute) Carpal tunnel syndrome of right wrist (Acute) Cervical osteoarthritis (Acute) Osteoarthritis of lumbar spine (Acute) Heart murmur (Acute) Palpitations (Acute) Bilateral hand numbness (Acute) Osteoarthritis of right knee (Acute) History of total right hip replacement (Acute 02/27/22) Neck pain (Acute) Environmental allergies (Acute) Asthma (Acute) Osteoarthritis of right hip (Acute) Hyperlipidemia (Acute) Colorectal polyp detected on colonoscopy (Acute) Fibromyalgia (Acute) Alix's disease (Acute) Interstitial cystitis (Acute) Past Medical History Medical History (Updated 08/24/24 @ 14:01 by Franklyn Conner MD) Asthma Chronic pain Hyperlipidemia Colorectal polyp detected on colonoscopy Normal Pap smear Alix's disease Interstitial cystitis Annual physical exam Fibromyalgia Family History Family History Father No problems noted. 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[place]) Housing: House Are you a primary skin care therapist to a significant other at home: No Do you presently have visiting nurse or other home services: No Alcohol intake: current Alcohol intake frequency: holidays/special occasions only Patient Tobacco Use Status: Former Tobacco user Tobacco use type: Cigarette Years Smoked: 20 years e-Cigarette/Vaping Use: Never Used Use of substances other than those prescribed or required for medical reasons: No Are you DNR?: No Advance Directives: No Advance Directives Information Provided: Yes Patient : No : No Poor oral hygiene: No service: No Current occupational status: unemployed 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 Cognitive needs: No Hearing needs: No Vision needs: Yes Meds Allergies Allergy/AdvReac Type Severity Reaction Status Date / Time No Known Allergies Allergy Verified 08/24/24 12:52 Home Medications ?Medication ?Instructions ?Recorded ?Confirmed ?Last Taken ?Type tizanidine 2 mg tablet 2 mg PO TID 02/19/23 02/18/24 Unknown History Exam Height,Weight and Vital Signs: Height 5 ft 1 in Weight 69.853 kg Assessment and Plan Assessment Anesthesia Assessment: Chart Reviewed Final Anesthetic Review Family History of Problems with Anesthesia: No History of Problems with Anesthesia: No Documented by User: Anmol Mcghee MD 11/17/24 11:01 [facility] Past Medical History Medical History (Updated 08/24/24 @ 14:01 by Franklyn Conner MD) Asthma Chronic pain Hyperlipidemia Colorectal polyp detected on colonoscopy Normal Pap smear Alix's disease Interstitial cystitis Annual physical exam Fibromyalgia Family History Family History Father No problems noted. 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[place]) Housing: House Are you a primary skin care therapist to a significant other at home: No Do you presently have visiting nurse or other home services: No Alcohol intake: current Alcohol intake frequency: holidays/special occasions only Patient Tobacco Use Status: Former Tobacco user Tobacco use type: Cigarette Years Smoked: 20 years e-Cigarette/Vaping Use: Never Used Use of substances other than those prescribed or required for medical reasons: No Are you DNR?: No Advance Directives: No Advance Directives Information Provided: Yes Patient : No : No Poor oral hygiene: No service: No Current occupational status: unemployed 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 Cognitive needs: No Hearing needs: No Vision needs: Yes Meds Allergies Allergy/AdvReac Type Severity Reaction Status Date / Time No Known Allergies Allergy Verified 08/24/24 12:52 Home Medications ?Medication ?Instructions ?Recorded ?Confirmed ?Last Taken ?Type tizanidine 2 mg tablet 2 mg PO TID 02/19/23 02/18/24 Unknown History Exam Airway Mallampati Class: II TM Dist: >3cm Neck ROM: Full Assessment and Plan Assessment Anesthesia Assessment: Anesthesia Plan Discussed Final Anesthetic Review NPO: Yes Final Preanesthetic Review: No Changes in Pt Med Stat, Meds/Allgs Chart Reviewed, Consent Obtained/Reviewed and Anes Risks/Benef Reviewed Patient Risk: Low Procedure Risk: Low Anesthetic Plan Anesthetic Plan: TIVA Disposition: Standard PACU
--- NOTE | 2024-11-17 10:00 | MHC.SHP ---
Pre-Procedural Eval Section A - 24 Hr Update-Section A only Date of Service: 11/17/24 Section B - Complete if H&P > 30 days Chief Complaint: screening,gerd, Relevant Family History (Specify if Yes): No Relevant Social History: None Present Medications: see Short Stay Collaborative assessment Medical History: Significant History (Asthma Chronic pain Hyperlipidemia Colorectal polyp detected on colonoscopy Normal Pap smear Alix's disease Interstitial cystitis Fibromyalgia) History of Previous Operations: Relevant previous surgery/procedure and date(s) ( History of total right hip replacement (02/27/22) Hx of unilateral salpingectomy Hx of section H/O colonoscopy) Allergies: Allergies Allergy/AdvReac Type Severity Reaction Status Date / Time No Known Allergies Allergy Verified 08/24/24 12:52 Review of Systems Sugical H&P ROS: Negative: Constitution, Cardiovascular, Respiratory, Neurological, Psychiatric, Hem-Onc, Allergic/Immunologic, Gastrointestinal, Genitourinary, Musculoskeletal, Integumentary, Endocrine and Eyes/Ears/Nose/Throat Exam Surgical H&P Exam: Normal: HEENT, Normal: Heart, Normal: Lungs, Normal: Extremities, Normal: Abdomen, Normal: Skin and Normal: Neurological Plan Diagnosis/Plan: Unchanged I have reviewed the history and physical and performed a pertinent physical examination on my patient. No changes have occurred unless specified. EGD for GERD and colonoscopy for hx of polyps and screening Time Spent With Patient Time: Total time managing care of this patient today ____ minutes.
[2024-11-17 10:13] VITALS: BMI 29.1
[2024-11-17 10:29] VITALS: BP 108/51; PULSE 71; RESP 16; TEMP 36.4; O2SAT 98
[2024-11-17] MEDS: Lactated Ringers 1,000 ML 100 ML IVCONT (10:37)
--- NOTE | 2024-11-17 11:40 | HO.OPN-COLON ---
Colonoscopy Operative Note Operative Note Date of Service: 11/17/24 Narrative: Operative Information Procedure Description: EGD, Colonoscopy Indication: GERD, colon screening Anesthesia: MAC FLEXIBLE TRANSORAL UPPER GASTROINTESTINAL ENDOSCOPY AND COLONOSCOPY PROCEDURE NOTE UPPER ENDOSCOPY Consent: Indications for the procedure and potential complications of bleeding, perforation, reaction to medications and missed diagnosis were discussed with the patient and informed consent was obtained. Instrument: Olympus GIF H 190 J mid size upper endoscope Monitoring: Vital signs and clinical assessment, continuous EKG monitoring, Pulse oximetry, Carbon Dioxide monitoring and blood pressure monitoring were done throughout the procedure. Procedure: The patient was placed in the left lateral decubitis position and pre-procedure medications were administered and a bite block was placed. The endoscope was inserted into the mouth and advanced under direct vision to the third part of duodenum. A careful inspection was made as the upper endoscope was withdrawn including a retroflexed examination of the proximal stomach; Findings and interventions are described below. Findings: Larynx:normal Esophagus: GE junction at 33 cm, diaphragm hiatus at 35 cm, consistent with 2 cm sliding hiatal hernia, with lax LES and schatzki ring, bx taken from GEJ, distal and proximal esophagus Stomach: Normal mucosa. Biopsies were obtained to r/o h pylori. Grade 2 flap valve on retroflexed examination of the cardia. Duodenum: mild bulbar duodenitis, bx taken Intervention: Biopsies as noted above, COLONOSCOPY Instrument: Olympus variable stiffness pediatric scope 190L Colonoscopy Monitoring: Vital signs and clinical assessment, continuous EKG monitoring, Pulse oximetry, Carbon Dioxide monitoring and blood pressure monitoring were done throughout the procedure. Colon withdrawal time was 16 minutes. Procedure: The patient was placed in the left lateral decubitis position and pre-procedure medications were administered. After a digital rectal examination of the ano-rectum, the video colonoscope was inserted into the rectum and advanced through the colon to the cecum/TI. The colonoscope was slowly withdrawn in a retrograde panoramic fashion and the colon mucosa was carefully examined including a retroflexed view of the rectum. Findings and interventions are described below. Procedure Difficulty:moderate Findings: Terminal Ileum-normal Cecum: x 1 sessile polyp 3-4 mm removed with cold forceps Ascending Colon: normal Transverse Colon -normal Descending Colon:normal Sigmoid Colon: normal Rectum: Retroflexion with small internal hemorrhoids, grade I Anorectum - normal Colon preparation: [place] Bowel Preparation Scale Right colon; 1-2 Transverse colon: 2 Left colon; 2 (0 = Unprepared colon segment with mucosa not seen due to solid stool that cannot be cleared. 1 = Portion of mucosa of the colon segment seen, but other areas of the colon segment not well seen due to staining, residual stool and/or opaque liquid. 2 = Minor amount of residual staining, small fragments of stool and/or opaque liquid, but mucosa of colon segment seen well. 3 = Entire mucosa of colon segment seen well with no residual staining, small fragments of stool or opaque liquid) Impression and Post Procedure Diagnosis: Endoscopy Findings: hiatal hernia incompetent LES schatzki ring mild duodenitis Colonoscopy Findings: colon polyp x 1 internal hemorrhoids Plan: Await Pathology results Repeat Colonoscopy in 1 year due to staining and fair prep on the right or earlier if clinically indicated--maybe next time 2 d of clears High fiber diet leaflet avoid straining at stool, epsom salts and sitz bath, anusol supps or cream GERD precautions , can consider changing PPI if ongoing sx e.g nexium Above findings were reviewed with the patient and relevant handouts were provided if indicated.
[2024-11-17 11:46] VITALS: BP 97/57; PULSE 76; RESP 15; TEMP 36.2; O2SAT 96
[2024-11-17 12:02] VITALS: BP 121/69; PULSE 62; RESP 18; TEMP 36.2; O2SAT 99
== END 2024-11-17 12:20 | disposition home or self-care (01) ==
PROVIDERS: PCP Internal Medicine; Visit Provider Internal Medicine Gastroenterology
PROC: (CPT 45380; principal; 2024-11-17 12:20)
DX: Z12.11 Encounter for screening for malignant neoplasm of colon (principal); K63.5 Polyp of colon; K64.0 First degree hemorrhoids; K21.9 Gastro-esophageal reflux disease without esophagitis; K29.50 Unspecified chronic gastritis without bleeding; K29.80 Duodenitis without bleeding; K22.2 Esophageal obstruction; K44.9 Diaphragmatic hernia without obstruction or gangrene; J45.909 Unspecified asthma, uncomplicated; E78.5 Hyperlipidemia, unspecified; E06.3 Autoimmune thyroiditis; Z96.641 Presence of right artificial hip joint; N30.10 Interstitial cystitis (chronic) without hematuria; G89.29 Other chronic pain; M79.7 Fibromyalgia; Z79.51 Long term (current) use of inhaled steroids; Z79.899 Other long term (current) drug therapy; Z98.890 Other specified postprocedural states; Z87.891 Personal history of nicotine dependence; Z56.0 Unemployment, unspecified
CPT/HCPCS: 45380; 43239; 88305; 88313; 88342; J2003; J2704

== ENCOUNTER → 2024-11-17 09:18 | Outpatient (BNV) | payer BC, SELFPAY | PROVIDERS: PCP Internal Medicine; Visit Provider Internal Medicine Gastroenterology | DX: Z12.11 Encounter for screening for malignant neoplasm of colon (principal); D12.0 Benign neoplasm of cecum; K64.0 First degree hemorrhoids; K21.9 Gastro-esophageal reflux disease without esophagitis; K22.2 Esophageal obstruction; K22.4 Dyskinesia of esophagus; K29.80 Duodenitis without bleeding | CPT/HCPCS: 43239; 45380 ==

== ENCOUNTER 2025-02-23 13:00 | Outpatient (AMB) | payer BC, SELFPAY ==
[2025-02-23 13:04] VITALS: BP 110/70; PULSE 91; RESP 18; TEMP 36.8; O2SAT 97; BMI 29.1
--- NOTE | 2025-02-23 13:04 | A.OFFPC_ITS ---
Vital Signs 02/23/25 13:04 Height 5 ft 1 in Weight 154 lb BMI 29.1 BP 110/70 Blood Pressure Location Lt brachial Position Sitting Respiration 18 Pulse 91 Pulse Source Pulse Oximeter Temp 98.2 F Temp Source Oral Pulse Oximetry (%) 97 Oxygen Delivery Method Room Air Intake Visit Reasons: PE Intake Note: Pt is here today for PE. Allergies No Known Allergies Allergy (Verified 02/23/25 13:06) Medication List - Last Reconciled 02/23/25 by Colette Mazariegos MD albuterol sulfate 90 mcg/actuation 2 puffs inhalation Q6H PRN atorvastatin 20 mg PO BEDTIME duloxetine 60 mg PO DAILY estradiol 0.5 mg PO DAILY fluticasone furoate-vilanterol 200-25 mcg/dose (Breo Ellipta) 1 inh inhalation DAILY ipratropium bromide 2 sprays intranasal TID-QID PRN meloxicam 15 mg PO DAILY PRN omalizumab (Xolair) 150 mg subcut Q4W 28 days omeprazole 40 mg PO BID progesterone micronized 100 mg PO DAILY sodium,potassium,mag sulfates 17.5-3.13-1.6 gram (Suprep Bowel Prep Kit) DILUTE each bottle with 16oz of water; drink first bottle 4pm evening before procedure AND second bottle at 10pm; follow each bottle with at least 32 oz.of water within 1 hour after each bottle tizanidine 2 mg PO TID Tobacco use date assessed: 02/23/25 Dental Screening Dental Screen Date: 02/23/25 Did you have a dental visit in the last 12 months?: Yes Did you have a dental problem in the last 6 months where you did not have access to dental care?: No Was dental information given to patient?: Patient has dentist HPI PE HPI Details Patient presents for a physical. She will have a foot surgery for plantar fasciitis by Podiatry. Hyperlipidemia and chronic asthma are controlled on current medications. Patient is established with pain management for body aches controlled on duloxetine meloxicam and tizanidine. [facility]LY [facility] Medical History Asthma Chronic pain Hyperlipidemia Colorectal polyp detected on colonoscopy Normal Pap smear Alix's disease Interstitial cystitis Annual physical exam Fibromyalgia Surgical History (Updated 02/23/25 @ 14:00 by Colette Mazariegos MD) Hx of carpal tunnel repair History of surgery History of total right hip replacement (02/27/22) Hx of unilateral salpingectomy Hx of section H/O colonoscopy Family History (Reviewed 02/23/25 @ 13:10 by Shilpi Kruse [facility]) Father No problems noted. 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[facility] [employer] [place]) Housing: House Are you a primary hourly caregiver to a significant other at home: No Do you presently have visiting nurse or other home services: No Alcohol intake: current Alcohol intake frequency: holidays/special occasions only Patient Tobacco Use Status: Former Tobacco user Tobacco use type: Cigarette Years Smoked: 20 years e-Cigarette/Vaping Use: Never Used service: No Current occupational status: unemployed 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 1. Little interest or pleasure in doing things: not at all 2. Feeling down, depressed, or hopeless: not at all 3. Trouble falling or staying asleep, or sleeping too much: not at all 4. Feeling tired or having little energy: nearly every day 5. Poor appetite or overeating: not at all 6. Feeling bad about yourself - or that you are a failure or have let yourself or your family down: not at all 7. Trouble concentrating on things, such as reading the newspaper or watching television: not at all 8. Moving or speaking so slowly that other people could have noticed. Or the opposite - being so fidgety or restless that you have been moving around a lot more than usual: not at all 9. Thoughts that you would be better off or of hurting yourself in some way: not at all Total score: 3 Depression Screening Interpretation: Negative Depression Screening Done: Yes Source: Developed by Drs. Sanchez Dominguez, Karissa Neville, Bhavin Tobias and colleagues, with an educational thang from [employer]. Thrive Questionnaire Date Thrive assessed: 02/18/24 I am a: Patient What is your living situation today?: I have a steady place to live Within the past 12 months, did the food you bought not last and you didn't have the money to get more?: Never true Within the past 12 months, did you worry whether your food would run out before you got money to buy more?: Never true Do you have trouble paying for medicines?: No Do you have trouble getting transportation to medical appointments?: No Do you have trouble paying your heating and electricity bill?: No Do you have trouble taking care of your child, family member or friend?: No Do you have trouble with day-to-day activities such as bathing, preparing meals, shopping, managing finances, etc.?: No Are you currently unemployed and looking for a job?: No Are you interested in more education?: No Please select the resources that you would like help with: None Currently or been in a relationship where the following occur: No concerns reported THRIVE Score: 0 AUDIT C Alcohol Use Questionnaire (AUDIT-C) 1. How often do you have a drink containing alcohol?: 2-4 times a month 2. How many drinks containing alcohol do you have on a typical day when you are drinking?: 1 or 2 3. How often do you have six or more drinks on one occasion?: Never Total Score: 2 VICKIE-7 AMB Questionnaire VICKIE-7 Date VICKIE - 7 assessed: 02/18/24 Feeling nervous, anxious, or on edge: 1 = Several days Not being able to stop or control worryin = Several days Worrying too much about different things: 1 = Several days Trouble relaxin = Several days Being so restless that it is hard to sit still: 0 = Not at all Becoming easily annoyed or irritable: 1 = Several days Feeling afraid as if something awful might happen: 0 = Not at all Total VICKIE-7 score (0-4 normal; 5-9 mild; 10-14 moderate; 15-21 severe): 5 Source: Developed by Drs. Sanchez Dominguez, Karissa Neville, Bhavin Tobias and colleagues, with an educational thang from [employer]. Review of Systems Const All systems reviewed & are unremarkable except as noted in HPI and below Eyes Reports no additional complaints ENT Reports no additional complaints Card Reports no additional complaints Resp Reports no additional complaints GI Reports no additional complaints Reports no additional complaints Physical exam (Primary Care) Vital Signs: Last Vital Signs Temp 98.2 F 02/23/25 13:04 Pulse 91 02/23/25 13:04 Resp 18 02/23/25 13:04 BP 110/70 02/23/25 13:04 Pulse Ox 97 02/23/25 13:04 Oxygen Delivery Method Room Air 02/23/25 13:04 BMI result Body Mass Index 29.1 Tobacco/Smoking Status: Tobacco use Status Tobacco use date assessed 02/23/25 02/23/25 13:11 Patient Tobacco Use Status Former Tobacco user 02/23/25 13:11 Tobacco use type Cigarette 02/23/25 13:11 e-Cigarette/Vaping Use Never Used 02/23/25 13:11 PHQ-9: PHQ-9 Score PHQ-9: Total score 3 02/23/25 13:29 Depression Screening Interpretation: Negative Thrive Assessment: Date of Thrive Assessment Date Thrive assessed 02/18/24 02/23/25 13:11 Currently or been in a relationship where the following occur: No concerns reported Const General: no acute distress HENMT Head: Yes normal to inspection Ears: TM's normal bilaterally Face and sinus: Yes normal facial exam Mouth: Normal oral and palatal mucosa present Throat: Yes posterior oropharynx normal Eyes General: appearance normal, both eyes and all related structures Neck Neck: Yes no lymphadenopathy and Yes supple Resp Effort & Inspection: normal respiratory effort Auscultation: clear to auscultation bilaterally Cardio Rhythm: regular rhythm Heart sounds: S1 normal heart sound present and S2 normal heart sound present GI Inspection: Yes normal to inspection Palpation (GI): Soft to palpation Percussion: Yes normal to percussion Auscultation: normal bowel sounds Extrem General: Yes no clubbing, cyanosis or edema Coding Level of Care Code Est Pt Prev Care 40-64y(42085) Diagnoses Hyperlipidemia E78.5 Annual physical exam Z00.00 Assessment & Plan Assessment & Plan (1) Hyperlipidemia: Code(s): E78.5 - Hyperlipidemia, unspecified Category: Medical Plan: Continue atorvastatin ,return for fasting blood work (2) Annual physical exam: Code(s): Z00.00 - Encounter for general adult medical examination without abnormal findings Category: Medical Plan: Well-balanced diet regular physical activity discussed with the patient. She is up-to-date with the mammogram Pap smear by supervisor process testing and colonoscopy Orders: Orders IRON PROFILE Today E78.5 - Hyperlipidemia, unspecified, Z00.00 - Encounter for general adult medical examination without abnormal findings Ferritin Today E78.5 - Hyperlipidemia, unspecified, Z00.00 - Encounter for general adult medical examination without abnormal findings TSH reflex Free T4 Today E78.5 - Hyperlipidemia, unspecified, Z00.00 - Encounter for general adult medical examination without abnormal findings Vitamin D 25-OH Total Today E78.5 - Hyperlipidemia, unspecified, Z00.00 - Encounter for general adult medical examination without abnormal findings Comprehensive [place]. Panel Fast Today E78.5 - Hyperlipidemia, unspecified, Z00.00 - Encounter for general adult medical examination without abnormal findings Complete Blood Count Auto Diff Today E78.5 - Hyperlipidemia, unspecified, Z00.00 - Encounter for general adult medical examination without abnormal findings Lipid Panel Today E78.5 - Hyperlipidemia, unspecified, Z00.00 - Encounter for general adult medical examination without abnormal findings UA w Microscopic Today E78.5 - Hyperlipidemia, unspecified, Z00.00 - Encounter for general adult medical examination without abnormal findings
== END 2025-02-23 14:04 | disposition home or self-care (01) ==
LOC: HO.HMCC 13:01
PROVIDERS: PCP Internal Medicine; Visit Provider Internal Medicine
DX: E78.5 Hyperlipidemia, unspecified (principal); Z00.00 Encounter for general adult medical examination without abnormal findings

== ENCOUNTER 2025-02-26 11:39 | Outpatient (REF) | payer BC, SELFPAY ==
--- NOTE | ~2025-02-26 | MM_ITS ---
EXAMINATION: MM SCREENING DIGITAL BREAST TOMOSYNTHESIS, BILATERAL CLINICAL INFORMATION: Screening. Asymptomatic. COMPARISON: Comparison made to multiple prior, most recent February 25, 2024, and most remote February 15, 2022. TECHNIQUE: Digital breast tomosynthesis is performed in mediolateral oblique and craniocaudal views along with computer-aided detection (CAD). Synthesized 2D images are generated from the tomosynthesis. Images with implants and displaced implant views were obtained. FINDINGS: BREAST COMPOSITION: The breasts are heterogeneously dense, which may obscure small masses. BILATERAL BREASTS: Bilateral retropectoral silicone implants are mammographically intact. No significant masses, suspicious calcifications or other abnormalities are seen in either breast. MM/MM tomosynthesis screen imp BI IMPRESSION: BILATERAL BREASTS: Benign, no mammographic evidence of malignancy. Normal interval follow-up is recommended in 12 months. ASSESSMENT: BI-RADS: Category 2: Benign RECOMMENDATION: Routine annual mammography screening. FOLLOW-UP: 1 year F/U This examination should not preclude the clinical evaluation of a suspicious palpable abnormality. This patient's information was entered into a reminder system with a target due date for their next mammogram. Electronically signed by: Bianca Jesus MD 03/01/2025 06:24 PM EDT
== END 2025-02-26 11:40 | disposition home or self-care (01) ==
LOC: HO.MAMMO 11:39
PROVIDERS: PCP Internal Medicine; Visit Provider Internal Medicine
DX: Z12.31 Encounter for screening mammogram for malignant neoplasm of breast (principal)
CPT/HCPCS: 77063; 77067

== ENCOUNTER → 2025-02-26 11:45 | Outpatient (BNV) | payer BC, SELFPAY | PROVIDERS: PCP Internal Medicine; Visit Provider Radiology Body Imaging | DX: Z12.31 Encounter for screening mammogram for malignant neoplasm of breast (principal) | CPT/HCPCS: 77063; 77067 ==